=== PATIENT | male | born 1970 | race American Indian/Alaskan Native ===

== ENCOUNTER 2017-10-16 00:10 | Emergency (ER) | payer MEDICARE ==
[2017-10-16] MEDS ORDERED: ASPIRIN PO ONE (00:34)
[2017-10-16 01:16] LABS: Basophils % (Auto) 0.5 % (0.0-1.8); Eosinophils % (Auto) 0.3 % (0.0-4.3); Lymphocytes # (Auto) 1.1 K/mm3 (1.2-5.4); Lymphocytes % (Auto) 12.4 % (13.4-35.0); Mean Corpuscular HGB Conc 30 % (32-34); Mean Corpuscular Volume 82 fl (84-94); Monocytes # (Auto) 0.8 K/mm3 (0.0-0.8); Monocytes % (Auto) 8.6 % (0.0-7.3); Platelet Count 373 K/mm3 (140-440); Red Blood Count 4.69 M/mm3 (3.65-5.03); Red Cell Distribution Width 15.4 % (13.2-15.2)
[2017-10-16 01:33] LABS: Hematocrit 38.4 % (35.5-45.6); Hemoglobin 11.6 gm/dl (11.8-15.2); Mean Corpuscular Hemoglobin 25 pg (28-32)
[2017-10-16 01:40] LABS: Alanine Aminotransferase 13 units/L (7-56); Albumin 3.9 g/dL (3.9-5); BUN/Creatinine Ratio 16; Blood Urea Nitrogen 26 mg/dL (9-20); Calcium 9.1 mg/dL (8.4-10.2); Hemolysis Index 23
[2017-10-16] MEDS ORDERED: SUBLIMAZE IM ONE (10:54)
[2017-10-16] MEDS ORDERED: ZOFRAN IM ONE (10:54)
--- NOTE | 2017-10-16 11:01 | Emergency Department Report ---
HPI - General Chief Complaint: Chest Pain Time Seen by Provider: 10/16/17 10:48 - HPI HPI: Room 4 The patient is a 46-year-old male presenting with a chief complaint of abdominal pain and back pain. Patient states for the past 3 days she's had a constant pain in his right abdomen and lower back. Patient denies any other forms of pain. Patient denies dysuria or hematuria. Patient denies fever but admits to chills. The patient gives his pain a score of 9/10 Location: [See above] Duration: [See above] Quality: Pain Severity: 9/10 Modifying factors: [see above] Context: [see above] Mode of transportation: [not driving] ED Past Medical Hx - Past Medical History Hx Hypertension: Yes Hx Congestive Heart Failure: Yes Hx Deep Vein Thrombosis: Yes Hx Psychiatric Treatment: Yes (depression, anxiety, panic attacks) Additional medical history: crohn, osteomyelitis, diverticulitis, acid reflux - Surgical History Past Surgical History?: No Additional Surgical History: IVC filter, herniorrhaphy, ankle repair, perirectal abscess I&D 5 - Family History Family history: no significant - Social History Smoking Status: Current Every Day Smoker (1/2 pack per day) Substance Use Type: None (denies illicit drug use), Alcohol (occasional) - Medications Home Medications: Home Medications Medication Instructions Recorded Confirmed Last Taken Type traMADol [Ultram] 50 mg PO Q6HR PRN #10 tablet 10/16/17 Unknown Rx ED Review of Systems ROS: Stated complaint: CHEST PAIN Other details as noted in HPI Constitutional: chills. denies: fever Eyes: denies: eye pain ENT: denies: throat pain Cardiovascular: denies: chest pain Gastrointestinal: abdominal pain, nausea, vomiting, diarrhea Genitourinary: denies: dysuria, hematuria Musculoskeletal: back pain Neurological: denies: headache Physical Exam - Physical Exam Vital Signs: Vital Signs 10/16/17 00:26 Temperature 98.6 F Pulse Rate 80 Respiratory 20 Rate Blood Pressure 120/80 [Left] Physical Exam: GENERAL: The patient is well-developed well-nourished male lying on stretcher not appearing to be in acute distress. [] HEENT: Normocephalic. Atraumatic. Extraocular motions are intact. Patient has moist mucous membranes. NECK: Supple. Trachea midline CHEST/LUNGS: Clear to auscultation. There is no respiratory distress noted. HEART/CARDIOVASCULAR: Regular. There is no tachycardia. There is no gallop rub or murmur. ABDOMEN: Abdomen is soft, with tenderness to palpation in the right upper quadrant and right lower quadrant. Patient has normal bowel sounds. There is no abdominal distention. SKIN: There is no rash. There is no edema. There is no diaphoresis. NEURO: The patient is awake, alert, and oriented. The patient is cooperative. The patient has normal speech MUSCULOSKELETAL: There is mild right flank discomfort to palpation. There is no evidence of acute injury. ED Course Vital Signs 10/16/17 00:26 Temperature 98.6 F Pulse Rate 80 Respiratory 20 Rate Blood Pressure 120/80 [Left] ED Medical Decision Making - Lab Data Result diagrams: 10/16/17 00:49 10/16/17 00:49 Laboratory Tests 10/16/17 10/16/17 10/16/17 00:49 00:49 03:42 WBC 9.2 RBC 4.69 Hgb 11.6 L Hct 38.4 MCV 82 L MCH 25 L MCHC 30 L RDW 15.4 H Plt Count 373 Lymph % (Auto) 12.4 L [place] % (Auto) 8.6 H Eos % (Auto) 0.3 Baso % (Auto) 0.5 Lymph # 1.1 L [place] # 0.8 Eos # 0.0 Baso # 0.0 Seg Neutrophils % 78.2 H Seg Neutrophils # 7.2 Sodium 140 Potassium 3.5 L Chloride 101.2 Carbon Dioxide 18 L Anion Gap 24 BUN 26 H Creatinine 1.6 H Estimated GFR 57 BUN/Creatinine Ratio 16 Glucose 85 Calcium 9.1 Total Bilirubin < 0.20 AST 17 ALT 13 Alkaline Phosphatase 133 H Troponin T < 0.010 < 0.010 Total Protein 7.9 Albumin 3.9 Albumin/Globulin Ratio 1.0 Urine Color Urine Turbidity Urine pH Ur Specific [place] Urine Protein Urine Glucose (UA) Urine Ketones Urine Blood Urine Nitrite Urine Bilirubin Urine Urobilinogen Ur Leukocyte Esterase Urine WBC (Auto) Urine RBC (Auto) 10/16/17 10/16/17 11:10 12:06 WBC RBC Hgb Hct MCV MCH MCHC RDW Plt Count Lymph % (Auto) [place] % (Auto) Eos % (Auto) Baso % (Auto) Lymph # [place] # Eos # Baso # Seg Neutrophils % Seg Neutrophils # Sodium Potassium Chloride Carbon Dioxide Anion Gap BUN Creatinine Estimated GFR BUN/Creatinine Ratio Glucose Calcium Total Bilirubin AST ALT Alkaline Phosphatase Troponin T < 0.010 Total Protein Albumin Albumin/Globulin Ratio Urine Color Yellow Urine Turbidity Clear Urine pH 5.0 Ur Specific [place] 1.023 Urine Protein <15 mg/dl Urine Glucose (UA) Neg Urine Ketones Neg Urine Blood Neg Urine Nitrite Neg Urine Bilirubin Neg Urine Urobilinogen < 2.0 Ur Leukocyte Esterase Neg Urine WBC (Auto) < 1.0 Urine RBC (Auto) < 1.0 - EKG Data -: EKG Interpreted by Me EKG shows normal: sinus rhythm Rate: normal - EKG Data When compared to previous EKG there are: previous EKG unavailable Interpretation: other (no ischemic changes seen) - Radiology Data Radiology results: report reviewed (CT abdomen and pelvis), image reviewed (CT abdomen and pelvis) CT ABDOMEN PELVIS WITHOUT CONTRAST: HISTORY: Right sided abdominal pain, right back pain, Crohn's disease. COMPARISON: none. TECHNIQUE: Helical CT in 1.25mm intervals without IV contrast. Sagittal and coronal reconstructions. FINDINGS: Lung bases: Normal. Liver: Normal. Biliary system: Normal. Pancreas: Normal. Spleen: Normal. Kidneys/ureters/bladder: The kidneys are normal size, contour and position. The renal pyramids are slightly hyperintense suggesting nephrocalcinosis. A few punctate nonobstructing renal stones are suspected bilaterally. No ureteral stones or hydronephrosis is identified. The bladder and prostate gland are unremarkable.. Adrenal glands: Normal. Aorta: Normal. Intestines: The bowel loops are unremarkable given no oral contrast was administered. The terminal ileum is within normal limits. Appendix: Normal.An IVC filter is in place below the level of the renal veins. Pelvic viscera: Normal. Ascites: None. Adenopathy: None. Musculoskeletal: There is moderate degenerative disc disease at L3-4. A subtle superior endplate fracture at T12 is identified, age indeterminate. IMPRESSION: Punctate nonobstructing renal stones are identified. No hydronephrosis. The T12 superior endplate deformity of uncertain age. Please correlate with the patient. Transcribed By: TTR Dictated By: ANDREY NEWTON JR, MD Electronically Authenticated By: ANDREY NEWTON JR, MD Signed Date/Time: 10/16/17 1131 DD/ 1126 TD/TT: 10/16/17 1131 - Differential Diagnosis renal colic, appendicitis, cholelithiasis, gastroenteritis, Crohn's flare Critical care attestation.: If time is entered above; I have spent that time in minutes in the direct care of this critically ill patient, excluding procedure time. ED Disposition Clinical Impression: Acute abdominal pain Disposition: TO HOME OR SELFCARE Is pt being admited?: No Does the pt Need Aspirin: No Condition: Stable Instructions: Acute Abdominal Pain (ED) Additional Instructions: Return to the emergency department immediately should you develop worsening symptoms, fever, inability to tolerate food or liquid or any other concerns. 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
--- NOTE | 2017-10-16 11:37 | Cat Scan Report ---
CT ABDOMEN PELVIS WITHOUT CONTRAST: HISTORY: Right sided abdominal pain, right back pain, Crohn's disease. COMPARISON: none. TECHNIQUE: Helical CT in 1.25mm intervals without IV contrast. Sagittal and coronal reconstructions. FINDINGS: Lung bases: Normal. Liver: Normal. Biliary system: Normal. Pancreas: Normal. Spleen: Normal. Kidneys/ureters/bladder: The kidneys are normal size, contour and position. The renal pyramids are slightly hyperintense suggesting nephrocalcinosis. A few punctate nonobstructing renal stones are suspected bilaterally. No ureteral stones or hydronephrosis is identified. The bladder and prostate gland are unremarkable.. Adrenal glands: Normal. Aorta: Normal. Intestines: The bowel loops are unremarkable given no oral contrast was administered. The terminal ileum is within normal limits. Appendix: Normal.An IVC filter is in place below the level of the renal veins. Pelvic viscera: Normal. Ascites: None. Adenopathy: None. Musculoskeletal: There is moderate degenerative disc disease at L3-4. A subtle superior endplate fracture at T12 is identified, age indeterminate. IMPRESSION: Punctate nonobstructing renal stones are identified. No hydronephrosis. The T12 superior endplate deformity of uncertain age. Please correlate with the patient.
[2017-10-16 12:50] LABS: Bilirubin,Urine NEG (Negative); Blood,Urine NEG (Negative); Color,Urine Yellow (Yellow); Nitrite,Urine NEG (Negative); Protein,Urine <15 mg/dL mg/dL (Negative); RBC,Urine < 1.0 /HPF (0.0-6.0); Urobilinogen,Urine < 2.0 mg/dL (<2.0)
[2017-10-16 12:58] LABS: WBC,Urine < 1.0 /HPF (0.0-6.0)
[2017-10-16 13:26] VITALS: BP 140/84
== END 2017-10-16 16:16 | disposition home or self-care (01) ==
LOC: ED 00:10
DX: R10.9 Unspecified abdominal pain (principal); I11.0 Hypertensive heart disease with heart failure; Z86.718 Personal history of other venous thrombosis and embolism; F32.9 Major depressive disorder, single episode, unspecified; F41.0 Panic disorder [episodic paroxysmal anxiety]; K21.9 Gastro-esophageal reflux disease without esophagitis; K50.90 Crohn's disease, unspecified, without complications; F17.200 Nicotine dependence, unspecified, uncomplicated
CPT/HCPCS: 36415; 74176; 80048; 80053; 81001; 84484; 85025; 93005; 93010; 96372; 99284; J2405; J3010

== ENCOUNTER 2018-01-21 04:05 | Emergency (ER) | payer MEDICARE ==
[2018-01-21] MEDS ORDERED: MORPHINE IV ONE (04:53)
[2018-01-21] MEDS ORDERED: DECADRON IV ONE (04:53)
[2018-01-21] MEDS ORDERED: ZOFRAN IV ONE (04:53)
--- NOTE | 2018-01-21 04:57 | Emergency Department Report ---
ED Abdominal Pain HPI - General Chief Complaint: Abdominal Pain Stated Complaint: ABD PAIN Time Seen by Provider: 01/21/18 04:47 Source: patient Mode of arrival: Ambulatory Limitations: No Limitations - History of Present Illness MD Complaint: abdominal pain -: Gradual, days(s) (2) Location: diffuse Radiation: none Migration to: no migration Severity: moderate Quality: cramping Consistency: constant Context: other (history of Crohn's disease, history of C. difficile colitis, history of diverticulitis) Associated Symptoms: other (1-2 malodorous stools per day ) - Related Data Previous Rx's Medication Instructions Recorded Last Taken Type traMADol [Ultram] 50 mg PO Q6HR PRN #10 tablet 10/16/17 Unknown Rx HYDROcodone/APAP 5-325 [[place] 1 each PO Q4HR PRN #10 tablet 01/21/18 Unknown Rx 5/325] metroNIDAZOLE [Metronidazole] 500 mg PO BID 7 Days #14 tablet 01/21/18 Unknown Rx Allergies Allergy/AdvReac Type Severity Reaction Status Date / Time ceftriaxone Allergy Itching Verified 10/16/17 00:34 levofloxacin [From Levaquin] Allergy Itching Verified 10/16/17 00:34 shellfish derived Allergy Itching Verified 10/16/17 00:34 ED Review of Systems ROS: Stated complaint: ABD PAIN Other details as noted in HPI Comment: All other systems reviewed and negative Constitutional: fever, malaise Respiratory: denies: cough Cardiovascular: denies: chest pain ED Past Medical Hx - Past Medical History Hx Hypertension: Yes Hx Congestive Heart Failure: Yes Hx Deep Vein Thrombosis: Yes Hx Psychiatric Treatment: Yes (depression, anxiety, panic attacks) Additional medical history: crohn, osteomyelitis, diverticulitis, acid reflux - Surgical History Additional Surgical History: IVC filter, herniorrhaphy, ankle repair, perirectal abscess I&D 5 - Social History Smoking Status: Current Every Day Smoker Substance Use Type: None - Medications Home Medications: Home Medications Medication Instructions Recorded Confirmed Last Taken Type traMADol [Ultram] 50 mg PO Q6HR PRN #10 tablet 10/16/17 Unknown Rx HYDROcodone/APAP 5-325 [[place] 1 each PO Q4HR PRN #10 tablet 01/21/18 Unknown Rx 5/325] metroNIDAZOLE [Metronidazole] 500 mg PO BID 7 Days #14 tablet 01/21/18 Unknown Rx ED Physical Exam - General Limitations: No Limitations General appearance: alert, in no apparent distress - Head Head exam: Present: atraumatic, normocephalic - Eye Eye exam: Present: normal appearance - ENT ENT exam: Present: mucous membranes moist - Neck Neck exam: Present: normal inspection - Respiratory Respiratory exam: Present: normal lung sounds bilaterally. Absent: respiratory distress, wheezes, rales, rhonchi - Cardiovascular Cardiovascular Exam: Present: regular rate, normal rhythm, normal heart sounds. Absent: systolic murmur, diastolic murmur, rubs, gallop - GI/Abdominal GI/Abdominal exam: Present: soft, normal bowel sounds. Absent: distended, tenderness, guarding, rebound - Rectal Rectal exam: Present: deferred - Extremities Exam Extremities exam: Present: normal inspection - Neurological Exam Neurological exam: Present: alert, oriented X3 - Psychiatric Psychiatric exam: Present: normal affect, normal mood - Skin Skin exam: Present: warm, dry, intact, normal color. Absent: rash ED Course Vital Signs 01/21/18 04:12 Temperature 99 F Pulse Rate 96 H Respiratory 16 Rate Blood Pressure 120/84 O2 Sat by Pulse 100 Oximetry ED Medical Decision Making - Lab Data Result diagrams: 01/21/18 04:25 01/21/18 04:25 - Medical Decision Making Mr. Cates has a history of diverticulitis and Crohn's disease. He also has a history of C. difficile colitis. Followed by [employer] representative Dr. Mendez. He is taking Humira therapy. He held Humira injection on because he was feeling ill. Patient appears well. With the small amount of diarrhea I do not suspect C. difficile colitis. Patient does have elevated BUN with anion gap indicated of volume contraction. Will give IVF, rx: metronidazole and norco My colleague will f/u CT results. Critical care attestation.: If time is entered above; I have spent that time in minutes in the direct care of this critically ill patient, excluding procedure time. ED Disposition Clinical Impression: Crohn disease, Abdominal pain Disposition: DC-01 TO HOME OR SELFCARE Is pt being admited?: No Condition: Stable Instructions: Crohn Disease (ED) Prescriptions: HYDROcodone/APAP 5-325 [[place] 5/325] 1 each PO Q4HR PRN #10 tablet PRN Reason: Pain metroNIDAZOLE [Metronidazole] 500 mg PO BID 7 Days #14 tablet
[2018-01-21 05:18] LABS: Basophils # (Auto) 0.1 K/mm3 (0.0-0.1); Basophils % (Auto) 0.6 % (0.0-1.8); Eosinophils # (Auto) 0.1 K/mm3 (0.0-0.4); Eosinophils % (Auto) 0.6 % (0.0-4.3); Hemoglobin 11.8 gm/dl (11.8-15.2); Lymphocytes # (Auto) 1.1 K/mm3 (1.2-5.4); Lymphocytes % (Auto) 11.9 % (13.4-35.0); Mean Corpuscular HGB Conc 31 % (32-34); Mean Corpuscular Volume 83 fl (84-94); Monocytes # (Auto) 0.7 K/mm3 (0.0-0.8); Monocytes % (Auto) 7.1 % (0.0-7.3); Platelet Count 381 K/mm3 (140-440); Red Blood Count 4.59 M/mm3 (3.65-5.03); Red Cell Distribution Width 16.4 % (13.2-15.2)
[2018-01-21 05:21] LABS: Mean Corpuscular Hemoglobin 26 pg (28-32)
[2018-01-21 05:26] LABS: Alanine Aminotransferase 12 units/L (7-56); Albumin 4.7 g/dL (3.9-5); BUN/Creatinine Ratio 19; Blood Urea Nitrogen 26 mg/dL (9-20); Calcium 9.9 mg/dL (8.4-10.2); Hemolysis Index 2; Lipase 26 units/L (13-60)
[2018-01-21] MEDS ORDERED: NACL ONE (05:32)
[2018-01-21] MEDS ORDERED: NACL 0.9% 1000 ML 1,000 ML IV ONE (05:45)
[2018-01-21 07:31] VITALS: BP 111/77
--- NOTE | 2018-01-21 07:56 | Cat Scan Report ---
CT scan of abdomen and pelvis without IV contrast: Compared to 10/16/17. History: Crohn's disease. Findings: Normal lung bases. No pleural pericardial effusion. Normal liver spleen pancreas and gallbladder. Normal adrenals. There is circumscribed 3 mm density upper pole medial aspect left kidney. No hydronephrosis. Normal bladder. Prostatic calcification. Normal size prostate. No free intraperitoneal fluid or air. No evidence of adenopathy. Normal aorta. Mildly dilated appendix measuring 6 mm in diameter. No periappendiceal inflammation. Faecolith near the junction of the cecum and the appendix. Terminal ileum appears unremarkable. Stool in colon. No bowel distention. Impression: Nonobstructing calculus left kidney. No interval change. Additional findings as detailed above.
== END 2018-01-21 09:49 | disposition home or self-care (01) ==
LOC: ED 04:05
DX: K50.90 Crohn's disease, unspecified, without complications (principal); I11.0 Hypertensive heart disease with heart failure; F17.200 Nicotine dependence, unspecified, uncomplicated; F32.9 Major depressive disorder, single episode, unspecified; F41.0 Panic disorder [episodic paroxysmal anxiety]; Z86.718 Personal history of other venous thrombosis and embolism; Z88.1 Allergy status to other antibiotic agents; Z91.013 Allergy to seafood
CPT/HCPCS: 36415; 74176; 80053; 83690; 85025; 96361; 96374; 96375; 99284; J1100; J2270; J2405; J7030

== ENCOUNTER 2019-10-15 11:24 | Inpatient (IN) | payer MEDICARE ==
[2019-10-15] MEDS ORDERED: ONDANSETRON 4 MG/2 ML INJ IV ONE ×2 (11:46→15:43)
[2019-10-15] MEDS ORDERED: MORPHINE 4 MG/1 ML INJ IV ONE ×2 (11:46→15:43)
[2019-10-15] MEDS ORDERED: SODIUM CHLORIDE 0.9% 1000 ML 1,000 ML IV ONE (11:46)
--- NOTE | 2019-10-15 11:52 | Emergency Department Report ---
ED Abdominal Pain HPI - General Stated Complaint: ABD PAIN Time Seen by Provider: 10/15/19 11:42 Source: patient, EMS - History of Present Illness Initial Comments: Patient is 48 years old male with history of Crohn's disease, diverticulitis. Patient presented to the ER complaining of fever, chills and left lower quadrant abdominal pain for the last 2-3 days. Patient also complaining of nausea and vomiting and diarrhea also. Patient denied any chest pain or shortness of breath. No urinary symptoms. MD Complaint: abdominal pain -: days(s) (2) Location: LLQ Radiation: none Migration to: no migration Severity scale (0 -10): 7 Quality: sharp Consistency: constant - Related Data Previous Rx's Medication Instructions Recorded Last Taken Type traMADoL [Ultram] 50 mg PO Q6HR PRN #10 tablet 10/16/17 Unknown Rx HYDROcodone/APAP 5-325 [[place] 1 each PO Q4HR PRN #10 tablet 01/21/18 Unknown Rx 5/325] metroNIDAZOLE [Metronidazole] 500 mg PO BID 7 Days #14 tablet 01/21/18 Unknown Rx Allergies Allergy/AdvReac Type Severity Reaction Status Date / Time ceftriaxone Allergy Itching Verified 10/16/17 00:34 levofloxacin [From Levaquin] Allergy Itching Verified 10/16/17 00:34 shellfish derived Allergy Itching Verified 10/16/17 00:34 ED Review of Systems ROS: Stated complaint: ABD PAIN Other details as noted in HPI Comment: All other systems reviewed and negative Constitutional: chills, fever Respiratory: denies: cough, orthopnea, shortness of breath, SOB with exertion, SOB at rest, wheezing Cardiovascular: denies: chest pain Gastrointestinal: abdominal pain, nausea, vomiting, diarrhea. denies: constipation, hematemesis, melena, hematochezia Musculoskeletal: denies: back pain Neurological: denies: headache, weakness, numbness, paresthesias, confusion, abnormal gait ED Past Medical Hx - Past Medical History Hx Hypertension: Yes Hx Congestive Heart Failure: Yes Hx Deep Vein Thrombosis: Yes Hx Psychiatric Treatment: Yes (depression, anxiety, panic attacks) Additional medical history: crohn, osteomyelitis, diverticulitis, acid reflux - Surgical History Additional Surgical History: IVC filter, herniorrhaphy, ankle repair, perirectal abscess I&D 5 - Social History Smoking Status: Current Every Day Smoker Substance Use Type: None - Medications Home Medications: Home Medications Medication Instructions Recorded Confirmed Last Taken Type traMADoL [Ultram] 50 mg PO Q6HR PRN #10 tablet 10/16/17 Unknown Rx HYDROcodone/APAP 5-325 [[place] 1 each PO Q4HR PRN #10 tablet 01/21/18 Unknown Rx 5/325] metroNIDAZOLE [Metronidazole] 500 mg PO BID 7 Days #14 tablet 01/21/18 Unknown Rx ED Physical Exam - General General appearance: alert, in no apparent distress - Head Head exam: Present: atraumatic, normocephalic, normal inspection - Eye Eye exam: Present: normal appearance - ENT ENT exam: Present: mucous membranes dry - Neck Neck exam: Present: normal inspection. Absent: tenderness, meningismus - Respiratory Respiratory exam: Present: normal lung sounds bilaterally - Cardiovascular Cardiovascular Exam: Present: regular rate, normal rhythm, normal heart sounds - GI/Abdominal GI/Abdominal exam: Present: soft, normal bowel sounds. Absent: distended, tenderness, guarding, rebound, rigid, organomegaly, mass, bruit, pulsatile mass, hernia - Extremities Exam Extremities exam: Present: normal inspection, full ROM, normal capillary refill. Absent: tenderness, pedal edema, calf tenderness - Back Exam Back exam: Present: normal inspection, full ROM. Absent: CVA tenderness (R), CVA tenderness (L), muscle spasm, paraspinal tenderness, vertebral tenderness - Neurological Exam Neurological exam: Present: alert, oriented X3, CN II-XII intact, normal gait, reflexes normal - Psychiatric Psychiatric exam: Present: normal mood - Skin Skin exam: Present: warm, intact, normal color ED Course Vital Signs 10/15/19 11:50 Temperature 101.6 F H Pulse Rate 97 H Respiratory 12 Rate Blood Pressure 132/89 O2 Sat by Pulse 98 Oximetry ED Medical Decision Making - Lab Data Result diagrams: 10/15/19 12:58 10/15/19 12:58 - Radiology Data Radiology results: report reviewed - Medical Decision Making Patient is 48 years old male with history of Crohn's disease, diverticulitis. Patient presented to the ER complaining of fever, chills and left lower quadrant abdominal pain for the last 2-3 days. Patient also complaining of nausea and v omiting and diarrhea also. Patient denied any chest pain or shortness of breath. No urinary symptoms. Patient received normal saline, Zofran and morphine. CT abdomen and pelvis showed acute diverticulitis. Patient started on Flagyl. Discussed the patient with Dr. Tesfaye, he agreed to admit the patient to medical service for further management. Critical care attestation.: If time is entered above; I have spent that time in minutes in the direct care of this critically ill patient, excluding procedure time. ED Disposition Clinical Impression: Acute diverticulitis, Nausea and vomiting, Fever Disposition: DC-09 OP ADMIT IP TO THIS HOSP Is pt being admited?: Yes Condition: Stable
[2019-10-15 13:28] LABS: Alanine Aminotransferase 11 units/L (7-56); Albumin 3.4 g/dL (3.9-5); BUN/Creatinine Ratio 9; Blood Urea Nitrogen 14 mg/dL (9-20); Calcium 9.1 mg/dL (8.4-10.2); Hemolysis Index 0
[2019-10-15 13:32] LABS: Bilirubin,Direct < 0.2 mg/dL (0-0.2)
[2019-10-15] MEDS ORDERED: ACETAMINOPHEN 500 MG TAB PO ONE (13:35)
[2019-10-15 13:53] LABS: Hematocrit 25.9 % (35.5-45.6); Mean Corpuscular HGB Conc 31 % (32-34); Mean Corpuscular Volume 76 fl (84-94); Platelet Count 471 K/mm3 (140-440); Red Blood Count 3.43 M/mm3 (3.65-5.03); Red Cell Distribution Width 16.3 % (13.2-15.2)
--- NOTE | 2019-10-15 14:10 | XRay Report ---
CHEST 1 VIEW 10/15/2019 1:36 PM INDICATION / CLINICAL INFORMATION: fever. Nausea and vomiting x2 days. Fever. COMPARISON: None available. FINDINGS: SUPPORT DEVICES: None. HEART / MEDIASTINUM: Heart is normal size. Implantable cardiac loop recorder is present. LUNGS / PLEURA: No significant pulmonary or pleural abnormality. No pneumothorax. ADDITIONAL FINDINGS: No significant additional findings. IMPRESSION: 1. No acute findings. Signer Name: Jessica Hansen MD Signed: 10/15/2019 2:05 PM Workstation Name: [id number]
[2019-10-15] MEDS ORDERED: LORazepam 2 MG/ML VIAL IV ONE (14:16)
--- NOTE | 2019-10-15 15:26 | Cat Scan Report ---
CT of the abdomen and pelvis with contrast INDICATION: Abdominal pain and fever x2 days COMPARISON: 01/21/2018 FINDINGS: Lung bases are clear. Liver, spleen, pancreas, adrenal glands and kidneys are unremarkable and unchanged. 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 This appearance is old and unchanged. No definite gal lbladder or biliary tree abnormality. No fluid or adenopathy in the upper abdomen. Multiple abdominal wall collaterals are seen as well CT of the pelvis shows wall thickening and induration surrounding the proximal sigmoid colon likely d ue to focal colitis or diverticulitis. There is no extraluminal air or abscess. There is moderate carlee unt of proximal stool so there may be a low-grade obstruction at this level as well. No cul-de-sac fl uid with mild inguinal adenopathy unchanged. There are multiple venous collaterals in the pelvis as w ell. IMPRESSION: Moderate sigmoid colitis/diverticulitis. Automated exposure control was utilized to diminish radiation dose. Signer Name: Darryn Haskins MD Signed: 10/15/2019 3:22 PM Workstation Name: [id number]
[2019-10-15] MEDS ORDERED: metroNIDAZOLE/NS 500 MG/100 ML 500 MG/100 ML BAG IV ONE ×2 (15:45→17:42)
[2019-10-15 16:19] LABS: Basophils % (Manual) 0 % (0.0-1.8); Total Cells Counted 100
[2019-10-15 16:20] LABS: Anisocytosis 1+; Platelet Estimate Consistent w Auto; Target Cells Few
--- NOTE | 2019-10-15 21:05 | History and Physical Report ---
History of Present Illness Date of examination: 10/15/19 Date of admission: 10/15/19 16:00 Chief complaint: LLQ pain -2 days History of present illness: 48 years old male with history of Crohn's disease and diverticulitis presents to the ER complaining of fever, chills and left lower quadrant abdominal pain for the last 2-3 days. Patient also complaining of nausea and vomiting and diarrhea also. Patient denied any chest pain or shortness of breath. No urinary symptoms. MD Complaint: abdominal pain - 2 days Location: LLQ Radiation: none Migration to: no migration Severity scale (0 -10): 7 Quality: sharp Consistency: constant - Past Medical History Hypertension: Yes Congestive Heart Failure: Yes Deep Vein Thrombosis: Yes Psychiatric Treatment: Yes (depression, anxiety, panic attacks) Additional medical history: crohn, osteomyelitis, diverticulitis, acid reflux Surgical History Additional Surgical History: IVC filter, herniorrhaphy, ankle repair, perirectal abscess I&D 5 Social History Smoking Status: Current Every Day Smoker Substance Use Type: None Family History Htn Medications Home Medications: Home Medications Medication Instructions Recorded Confirmed Last Taken Type traMADoL [Ultram] 50 mg PO Q6HR PRN #10 tablet 10/16/17 Unknown Rx HYDROcodone/APAP 5-325 [[place] 1 each PO Q4HR PRN #10 tablet 01/21/18 Unknown Rx 5/325] metroNIDAZOLE [Metronidazole] 500 mg PO BID 7 Days #14 tablet 01/21/18 Unknown Rx Review of Systems ROS: Stated complaint: ABD PAIN Other details as noted in HPI Comment: All other systems reviewed and negative Constitutional: chills, fever Respiratory: denies: cough, orthopnea, shortness of breath, SOB with exertion, SOB at rest, wheezing Cardiovascular: denies: chest pain Gastrointestinal: abdominal pain, nausea, vomiting, diarrhea. denies: constipation, hematemesis, melena, hematochezia Musculoskeletal: denies: back pain Neurological: denies: headache, weakness, numbness, paresthesias, confusion, abnormal gait Medications and Allergies Allergies Allergy/AdvReac Type Severity Reaction Status Date / Time ceftriaxone Allergy Itching Verified 10/16/17 00:34 levofloxacin [From Levaquin] Allergy Itching Verified 10/16/17 00:34 shellfish derived Allergy Itching Verified 10/16/17 00:34 Home Medications Medication Instructions Recorded Confirmed Last Taken Type Unobtainable 10/15/19 10/15/19 Unknown History Active Meds: Active Medications Hydromorphone HCl (Dilaudid) 1 mg IV Q4H PRN PRN Reason: Pain , Severe (7-10) Exam - Constitutional Vitals: Temp Pulse Resp BP Pulse Ox 99.8 F H 103 H 23 135/79 99 10/15/19 20:22 10/15/19 20:22 10/15/19 20:22 10/15/19 17:45 10/15/19 20:22 Results - Labs CBC & Chem 7: 10/15/19 12:58 10/15/19 12:58 Labs: Laboratory Last Values WBC 7.0 K/mm3 (4.5-11.0) 10/15/19 12:58 RBC 3.43 M/mm3 (3.65-5.03) L 10/15/19 12:58 Hgb 8.0 gm/dl (11.8-15.2) L 10/15/19 12:58 Hct 25.9 % (35.5-45.6) L 10/15/19 12:58 MCV 76 fl (84-94) L 10/15/19 12:58 MCH 23 pg (28-32) L 10/15/19 12:58 MCHC 31 % (32-34) L 10/15/19 12:58 RDW 16.3 % (13.2-15.2) H 10/15/19 12:58 Plt Count 471 K/mm3 (140-440) H 10/15/19 12:58 [place] % (Auto) Mainstreaming Facilitator 10/15/19 12:58 Add Manual Diff Complete 10/15/19 12:58 Total Counted 100 10/15/19 12:58 Seg Neuts % (Manual) 83.0 % (40.0-70.0) H 10/15/19 12:58 Band Neutrophils % 0 % 10/15/19 12:58 Lymphocytes % (Manual) 3.0 % (13.4-35.0) L 10/15/19 12:58 Reactive Lymphs % (Man) 0 % 10/15/19 12:58 Monocytes % (Manual) 13.0 % (0.0-7.3) H 10/15/19 12:58 Eosinophils % (Manual) 1.0 % (0.0-4.3) 10/15/19 12:58 Basophils % (Manual) 0 % (0.0-1.8) 10/15/19 12:58 Metamyelocytes % 0 % 10/15/19 12:58 Myelocytes % 0 % 10/15/19 12:58 Promyelocytes % 0 % 10/15/19 12:58 Blast Cells % 0 % 10/15/19 12:58 Nucleated RBC % Not Reportable 10/15/19 12:58 Seg Neutrophils # Man 5.8 K/mm3 (1.8-7.7) 10/15/19 12:58 Band Neutrophils # 0.0 K/mm3 10/15/19 12:58 Lymphocytes # (Manual) 0.2 K/mm3 (1.2-5.4) L 10/15/19 12:58 Abs React Lymphs (Man) 0.0 K/mm3 10/15/19 12:58 Monocytes # (Manual) 0.9 K/mm3 (0.0-0.8) H 10/15/19 12:58 Eosinophils # (Manual) 0.1 K/mm3 (0.0-0.4) 10/15/19 12:58 Basophils # (Manual) 0.0 K/mm3 (0.0-0.1) 10/15/19 12:58 Metamyelocytes # 0.0 K/mm3 10/15/19 12:58 Myelocytes # 0.0 K/mm3 10/15/19 12:58 Promyelocytes # 0.0 K/mm3 10/15/19 12:58 Blast Cells # 0.0 K/mm3 10/15/19 12:58 WBC Morphology Not Reportable 10/15/19 12:58 Hypersegmented Neuts Not Reportable 10/15/19 12:58 Hyposegmented Neuts Not Reportable 10/15/19 12:58 Hypogranular Neuts Not Reportable 10/15/19 12:58 Smudge Cells Not Reportable 10/15/19 12:58 Toxic Granulation Not Reportable 10/15/19 12:58 Toxic Vacuolation Not Reportable 10/15/19 12:58 Dohle Bodies Not Reportable 10/15/19 12:58 Pelger-Huet Anomaly Not Reportable 10/15/19 12:58 Seng Rods Not Reportable 10/15/19 12:58 Platelet Estimate Consistent w auto 10/15/19 12:58 Clumped Platelets Not Reportable 10/15/19 12:58 Plt Clumps, EDTA Not Reportable 10/15/19 12:58 Large Platelets Not Reportable 10/15/19 12:58 Giant Platelets Not Reportable 10/15/19 12:58 Platelet Satelliting Not Reportable 10/15/19 12:58 Plt Morphology Comment Not Reportable 10/15/19 12:58 RBC Morphology Not Reportable 10/15/19 12:58 Dimorphic RBCs Not Reportable 10/15/19 12:58 Polychromasia Not Reportable 10/15/19 12:58 Hypochromasia Not Reportable 10/15/19 12:58 Poikilocytosis Not Reportable 10/15/19 12:58 Anisocytosis 1+ 10/15/19 12:58 Microcytosis Not Reportable 10/15/19 12:58 Macrocytosis Not Reportable 10/15/19 12:58 Spherocytes Not Reportable 10/15/19 12:58 Pappenheimer Bodies Not Reportable 10/15/19 12:58 Sickle Cells Not Reportable 10/15/19 12:58 Target Cells Few 10/15/19 12:58 Tear Drop Cells Not Reportable 10/15/19 12:58 Ovalocytes Not Reportable 10/15/19 12:58 Helmet Cells Not Reportable 10/15/19 12:58 [place] Bodies Not Reportable 10/15/19 12:58 [place] Rings Not Reportable 10/15/19 12:58 [place] Cells Not Reportable 10/15/19 12:58 Bite Cells Not Reportable 10/15/19 12:58 Crenated Cell Not Reportable 10/15/19 12:58 Elliptocytes Not Reportable 10/15/19 12:58 Acanthocytes (Spur) Not Reportable 10/15/19 12:58 Rouleaux Not Reportable 10/15/19 12:58 Hemoglobin C Crystals Not Reportable 10/15/19 12:58 Schistocytes Not Reportable 10/15/19 12:58 Malaria parasites Not Reportable 10/15/19 12:58 Jorge Alberto Bodies Not Reportable 10/15/19 12:58 Hem Pathologist Commnt No 10/15/19 12:58 Sodium 138 mmol/L (137-145) 10/15/19 12:58 Potassium 4.0 mmol/L (3.6-5.0) 10/15/19 12:58 Chloride 99.5 mmol/L (98-107) 10/15/19 12:58 Carbon Dioxide 24 mmol/L (22-30) 10/15/19 12:58 Anion Gap 19 mmol/L 10/15/19 12:58 BUN 14 mg/dL (9-20) 10/15/19 12:58 Creatinine 1.6 mg/dL (0.8-1.5) H 10/15/19 12:58 Estimated GFR 56 ml/min 10/15/19 12:58 BUN/Creatinine Ratio 9 % 10/15/19 12:58 Glucose 97 mg/dL (75-100) 10/15/19 12:58 Calcium 9.1 mg/dL (8.4-10.2) 10/15/19 12:58 Total Bilirubin 0.20 mg/dL (0.1-1.2) 10/15/19 12:58 Direct Bilirubin < 0.2 mg/dL (0-0.2) 10/15/19 12:58 Indirect Bilirubin 0.0 mg/dL 10/15/19 12:58 AST 25 units/L (5-40) 10/15/19 12:58 ALT 11 units/L (7-56) 10/15/19 12:58 Alkaline Phosphatase 89 units/L (35-129) 10/15/19 12:58 Total Protein 7.4 g/dL (6.3-8.2) 10/15/19 12:58 Albumin 3.4 g/dL (3.9-5) L 10/15/19 12:58 Albumin/Globulin Ratio 0.9 % 10/15/19 12:58 Lipase 24 units/L (13-60) 10/15/19 12:58 Short CBC 10/15/19 Range/Units 12:58 WBC 7.0 (4.5-11.0) K/mm3 Hgb 8.0 L (11.8-15.2) gm/dl Hct 25.9 L (35.5-45.6) % Plt Count 471 H (140-440) K/mm3 BMP 10/15/19 12:58 Sodium 138 Potassium 4.0 Chloride 99.5 Carbon Dioxide 24 BUN 14 Creatinine 1.6 H Glucose 97 Calcium 9.1 Liver Function 10/15/19 Range/Units 12:58 Total Bilirubin 0.20 (0.1-1.2) mg/dL Direct Bilirubin < 0.2 (0-0.2) mg/dL AST 25 (5-40) units/L ALT 11 (7-56) units/L Alkaline Phosphatase 89 (35-129) units/L Albumin 3.4 L (3.9-5) g/dL - Imaging and Cardiology CT scan - abdomen: report reviewed Assessment and Plan Advance Directives: Yes (Full code) VTE prophylaxis?: Chemical Plan of care discussed with patient/family: Yes - Patient Problems (1) Acute diverticulitis Current Visit: Yes Status: Acute Plan to address problem: Patient initiated on IV Zosyn and IV Flagyl Surprisingly he os not allergic to PCN but Ceftriaxone ID consult if necessary (2) AURORA (acute kidney injury) Current Visit: Yes Status: Acute Plan to address problem: IV fluids for now Possible VMN (3) Crohn's disease Current Visit: Yes Status: Chronic Qualifiers: Gastrointestinal tract location: unspecified location Plan to address problem: Inactive Will defer to GI (4) HTN (hypertension) Current Visit: Yes Status: Chronic Qualifiers: Hypertension type: essential hypertension Qualified Code(s): I10 - Essential (primary) hypertension Plan to address problem: Cont antihypertensives (5) CHF (congestive heart failure) Current Visit: Yes Status: Chronic Qualifiers: Heart failure type: combined systolic and diastolic Heart failure chronicity: chronic Qualified Code(s): I50.42 - Chronic combined systolic (congestive) and diastolic (congestive) heart failure Plan to address problem: By History (6) Anemia Current Visit: Yes Status: Chronic Qualifiers: Anemia type: unspecified type Qualified Code(s): D64.9 - Anemia, unspecified Plan to address problem: Anemia w/u (7) DVT prophylaxis Current Visit: Yes Status: Acute Plan to address problem: On Heparin and GI prophylaxis
[2019-10-15] MEDS ORDERED: METOCLOPRAMIDE 10 MG/2 ML INJ IV PRN (21:07)
[2019-10-15] MEDS: metroNIDAZOLE/NS 500 MG/100 ML 500 MG/100 ML BAG IV SCH (21:36)
[2019-10-15] MEDS: FAMOTIDINE 20 MG/2 ML INJ IV SCH (21:44)
[2019-10-15] MEDS: ONDANSETRON 4 MG/2 ML INJ IV PRN (21:44)
[2019-10-15] MEDS: HYDROmorphone 1 MG/1 ML INJ IV PRN (21:45)
[2019-10-15] MEDS: ACETAMINOPHEN 325 MG TAB PO PRN (21:45)
[2019-10-15] MEDS: PIPERACIL/TAZOBACTA 4.5/NS 100 4.5 GM/100 ML VIAL IV SCH (22:19)
[2019-10-16] MEDS: HYDROmorphone 1 MG/1 ML INJ IV PRN ×4 (02:05→19:46)
[2019-10-16] MEDS: ONDANSETRON 4 MG/2 ML INJ IV PRN ×4 (02:06→19:46)
[2019-10-16] MEDS: ACETAMINOPHEN 325 MG TAB PO PRN ×2 (06:26→22:47)
[2019-10-16] MEDS: PIPERACIL/TAZOBACTA 4.5/NS 100 4.5 GM/100 ML VIAL IV SCH ×3 (06:27→21:47)
[2019-10-16] MEDS: metroNIDAZOLE/NS 500 MG/100 ML 500 MG/100 ML BAG IV SCH ×2 (06:27→20:31)
--- NOTE | 2019-10-16 08:10 | Progress Note ---
Assessment and Plan Assessment and plan: 48-year-old man with history of Crohn's disease and diverticular disease who presents to the hospital with fevers chills and left lower quadrant pain x3 days. Associated with nausea vomiting and diarrhea. Past medical history includes hypertension, CHF, history of DVT status post IVC filter, depression anxiety panic attacks, Crohn's disease diverticulitis, acid reflux, osteomyelitis Acute diverticulitis/sepsis Antibiotics, IV fluids -Still having high fevers. Crohn's disease exacerbation? GI consult, empiric steroids Patient reports history of CHF Obtain echo dvt ppx- heparin sq History Interval history: Review of systems Constitutional: Still having high-grade fevers and malaise. No joint pains CVS: No chest pain, no orthopnea, no pedal edema GI: Reports having abdominal pain, nausea and diarrhea. Respiratory: , no wheezing, no coughing Hospitalist Physical - Physical exam Narrative exam: General.: Appears ill, cachectic HEENT: Moist mucous membranes, extraocular muscles intact, no lymphadenopathy Neck: supple Cardiac: S1-S2 heard Lungs: clear to auscultation bilaterally Abdomen: soft , tender, nondistended, bowel sounds positive Extremities: no edema clubbing or cyanosis Skin: no rash or lesions Neurologic: no gross focal deficits Psych: calm, and cooperative - Constitutional Vitals: Temp Pulse Resp BP Pulse Ox 103.0 F H 92 H 22 142/81 96 10/16/19 05:43 10/16/19 05:43 10/16/19 05:43 10/16/19 05:43 10/16/19 05:43 Results - Labs CBC & Chem 7: 10/17/19 09:01 10/17/19 09:01 Labs: Laboratory Last Values WBC 7.0 K/mm3 (4.5-11.0) 10/15/19 12:58 RBC 3.43 M/mm3 (3.65-5.03) L 10/15/19 12:58 Hgb 8.0 gm/dl (11.8-15.2) L 10/15/19 12:58 Hct 25.9 % (35.5-45.6) L 10/15/19 12:58 MCV 76 fl (84-94) L 10/15/19 12:58 MCH 23 pg (28-32) L 10/15/19 12:58 MCHC 31 % (32-34) L 10/15/19 12:58 RDW 16.3 % (13.2-15.2) H 10/15/19 12:58 Plt Count 471 K/mm3 (140-440) H 10/15/19 12:58 [place] % (Auto) Power And Recovery Supervisor 10/15/19 12:58 Add Manual Diff Complete 10/15/19 12:58 Total Counted 100 10/15/19 12:58 Seg Neuts % (Manual) 83.0 % (40.0-70.0) H 10/15/19 12:58 Band Neutrophils % 0 % 10/15/19 12:58 Lymphocytes % (Manual) 3.0 % (13.4-35.0) L 10/15/19 12:58 Reactive Lymphs % (Man) 0 % 10/15/19 12:58 Monocytes % (Manual) 13.0 % (0.0-7.3) H 10/15/19 12:58 Eosinophils % (Manual) 1.0 % (0.0-4.3) 10/15/19 12:58 Basophils % (Manual) 0 % (0.0-1.8) 10/15/19 12:58 Metamyelocytes % 0 % 10/15/19 12:58 Myelocytes % 0 % 10/15/19 12:58 Promyelocytes % 0 % 10/15/19 12:58 Blast Cells % 0 % 10/15/19 12:58 Nucleated RBC % Not Reportable 10/15/19 12:58 Seg Neutrophils # Man 5.8 K/mm3 (1.8-7.7) 10/15/19 12:58 Band Neutrophils # 0.0 K/mm3 10/15/19 12:58 Lymphocytes # (Manual) 0.2 K/mm3 (1.2-5.4) L 10/15/19 12:58 Abs React Lymphs (Man) 0.0 K/mm3 10/15/19 12:58 Monocytes # (Manual) 0.9 K/mm3 (0.0-0.8) H 10/15/19 12:58 Eosinophils # (Manual) 0.1 K/mm3 (0.0-0.4) 10/15/19 12:58 Basophils # (Manual) 0.0 K/mm3 (0.0-0.1) 10/15/19 12:58 Metamyelocytes # 0.0 K/mm3 10/15/19 12:58 Myelocytes # 0.0 K/mm3 10/15/19 12:58 Promyelocytes # 0.0 K/mm3 10/15/19 12:58 Blast Cells # 0.0 K/mm3 10/15/19 12:58 WBC Morphology Not Reportable 10/15/19 12:58 Hypersegmented Neuts Not Reportable 10/15/19 12:58 Hyposegmented Neuts Not Reportable 10/15/19 12:58 Hypogranular Neuts Not Reportable 10/15/19 12:58 Smudge Cells Not Reportable 10/15/19 12:58 Toxic Granulation Not Reportable 10/15/19 12:58 Toxic Vacuolation Not Reportable 10/15/19 12:58 Dohle Bodies Not Reportable 10/15/19 12:58 Pelger-Huet Anomaly Not Reportable 10/15/19 12:58 Seng Rods Not Reportable 10/15/19 12:58 Platelet Estimate Consistent w auto 10/15/19 12:58 Clumped Platelets Not Reportable 10/15/19 12:58 Plt Clumps, EDTA Not Reportable 10/15/19 12:58 Large Platelets Not Reportable 10/15/19 12:58 Giant Platelets Not Reportable 10/15/19 12:58 Platelet Satelliting Not Reportable 10/15/19 12:58 Plt Morphology Comment Not Reportable 10/15/19 12:58 RBC Morphology Not Reportable 10/15/19 12:58 Dimorphic RBCs Not Reportable 10/15/19 12:58 Polychromasia Not Reportable 10/15/19 12:58 Hypochromasia Not Reportable 10/15/19 12:58 Poikilocytosis Not Reportable 10/15/19 12:58 Anisocytosis 1+ 10/15/19 12:58 Microcytosis Not Reportable 10/15/19 12:58 Macrocytosis Not Reportable 10/15/19 12:58 Spherocytes Not Reportable 10/15/19 12:58 Pappenheimer Bodies Not Reportable 10/15/19 12:58 Sickle Cells Not Reportable 10/15/19 12:58 Target Cells Few 10/15/19 12:58 Tear Drop Cells Not Reportable 10/15/19 12:58 Ovalocytes Not Reportable 10/15/19 12:58 Helmet Cells Not Reportable 10/15/19 12:58 [place] Bodies Not Reportable 10/15/19 12:58 [place] Rings Not Reportable 10/15/19 12:58 [place] Cells Not Reportable 10/15/19 12:58 Bite Cells Not Reportable 10/15/19 12:58 Crenated Cell Not Reportable 10/15/19 12:58 Elliptocytes Not Reportable 10/15/19 12:58 Acanthocytes (Spur) Not Reportable 10/15/19 12:58 Rouleaux Not Reportable 10/15/19 12:58 Hemoglobin C Crystals Not Reportable 10/15/19 12:58 Schistocytes Not Reportable 10/15/19 12:58 Malaria parasites Not Reportable 10/15/19 12:58 Jorge Alberto Bodies Not Reportable 10/15/19 12:58 Hem Pathologist Commnt No 10/15/19 12:58 Sodium 138 mmol/L (137-145) 10/15/19 12:58 Potassium 4.0 mmol/L (3.6-5.0) 10/15/19 12:58 Chloride 99.5 mmol/L (98-107) 10/15/19 12:58 Carbon Dioxide 24 mmol/L (22-30) 10/15/19 12:58 Anion Gap 19 mmol/L 10/15/19 12:58 BUN 14 mg/dL (9-20) 10/15/19 12:58 Creatinine 1.6 mg/dL (0.8-1.5) H 10/15/19 12:58 Estimated GFR 56 ml/min 10/15/19 12:58 BUN/Creatinine Ratio 9 % 10/15/19 12:58 Glucose 97 mg/dL (75-100) 10/15/19 12:58 Calcium 9.1 mg/dL (8.4-10.2) 10/15/19 12:58 Total Bilirubin 0.20 mg/dL (0.1-1.2) 10/15/19 12:58 Direct Bilirubin < 0.2 mg/dL (0-0.2) 10/15/19 12:58 Indirect Bilirubin 0.0 mg/dL 10/15/19 12:58 AST 25 units/L (5-40) 10/15/19 12:58 ALT 11 units/L (7-56) 10/15/19 12:58 Alkaline Phosphatase 89 units/L (35-129) 10/15/19 12:58 Total Protein 7.4 g/dL (6.3-8.2) 10/15/19 12:58 Albumin 3.4 g/dL (3.9-5) L 10/15/19 12:58 Albumin/Globulin Ratio 0.9 % 10/15/19 12:58 Lipase 24 units/L (13-60) 10/15/19 12:58 Active Medications - Current Medications Current Medications: Generic Name Dose Route Start Last Admin Trade Name Freq PRN Reason Stop Dose Admin Acetaminophen 650 mg 10/15/19 21:07 10/16/19 06:26 Tylenol PO 650 mg Q4H PRN Administration Pain MILD(1-3)/Fever >100.5/BEAULIEU Famotidine 20 mg 10/15/19 22:00 10/15/19 21:44 Pepcid IV 20 mg BID ZACHERY Administration Heparin Sodium (Porcine) 5,000 unit 10/16/19 10:00 Heparin SUB-Q Q12HR ZACHERY Hydromorphone HCl 1 mg 10/15/19 19:47 10/16/19 07:40 Dilaudid IV 1 mg Q4H PRN Administration Pain , Severe (7-10) Piperacillin Sod/Tazobactam Sod 4.5 gm in 100 mls @ 200 mls/hr 10/15/19 22:00 10/16/19 06:27 Zosyn/Ns 4.5gm/100ml IV 200 mls/hr Q8HR ZACHERY Administration Protocol Metronidazole 500 mg in 100 mls @ 100 mls/hr 10/15/19 22:00 10/16/19 06:27 Flagyl 500 Mg/100 Ml IV 100 mls/hr Q8HR ZACHERY Administration Protocol Metoclopramide HCl 10 mg 10/15/19 21:07 Reglan IV Q6H PRN Nausea And Vomiting Ondansetron HCl 4 mg 10/15/19 21:07 10/16/19 02:06 Zofran IV 4 mg Q3H PRN Administration Nausea And Vomiting Sodium Chloride 10 ml 10/15/19 22:00 10/15/19 21:45 Sodium Chloride Flush Syringe 10 Ml IV 10 ml BID ZACHERY Administration Sodium Chloride 10 ml 10/15/19 21:07 Sodium Chloride Flush Syringe 10 Ml IV PRN PRN LINE FLUSH
[2019-10-16 08:20] LABS: % Iron Saturation 4.32 %
[2019-10-16] MEDS: FAMOTIDINE 20 MG/2 ML INJ IV SCH ×2 (09:55→21:48)
[2019-10-16] MEDS: methylPREDNISolone Sod Suc 500 MG in SODIUM CHLORIDE 0.9% 100 ML IV SCH (09:58)
[2019-10-16] MEDS: HEPARIN 5,000 UNIT/1 ML VIAL SUB-Q SCH ×2 (10:03→21:48)
--- NOTE | 2019-10-16 14:19 | Gastroenterology Consultation ---
<ELIZABETH OLIVAS - Last Filed: 10/16/19 14:20> History of Present Illness - Reason for Consult Consult date: 10/16/19 Crohn's, diverticulitis Requesting physician: DANNY SNELL - History of Present Illness Patient is a 48 y/o male with PMH of Crohn's disease (dx in 1997; hx of multiple perirectal abscesses with I&D), DVT (s/p IVC filter), depression/anxiety, CHF, HTN, osteomyelitis, GERD, and recurrent diverticulitis who presented to ED with c/o left lower abdominal pain with associated fever, N/V, and diarrhea. Upon admission, abd CT showed colitis vs diverticulitis in proximal sigmoid (no abscess or perforation; possible partial obstruction) to which GI has been consulted. This afternoon patient was resting in bed w/o acute distress. Reports continued LLQ pain and diarrhea with BMs x 10-12 per day (baseline 3-4/day). No blood in stool. He is followed by Dr. Herbert at [facility] for Crohn's disease to which he is currently being treated with Humira. Reports a hx of C-diff infection early last year and multiple recurrent episodes of diverticulitis in the past with last episode in July 2019 per patient with recommendations given for a colostomy at [facility] due to "narrowing" of his colon seen on f/u colonoscopy (records currently unavailable). States that at home he can tolerate liquid/soft foods but if he eats foods, like a pork chop, it makes his abd pain worse and his abdomen becomes distended likely "food will not pass". No recent abx therapy, travel, or known ill contacts. Has had significant wt loss due to above symptoms over the past year but states his wt has been relatively stable over the last 3 months. Denies CP, SOB, signs of bleeding, or constipation. Past History Past Medical History: other (see HPI) Past Surgical History: hernia repair, Other (IVC filter, ankle repair, perirectal abscess I&D 5) Social history: smoking. denies: alcohol abuse Family history: hypertension Medications and Allergies Allergies Allergy/AdvReac Type Severity Reaction Status Date / Time ceftriaxone Allergy Itching Verified 10/16/17 00:34 levofloxacin [From Levaquin] Allergy Itching Verified 10/16/17 00:34 shellfish derived Allergy Itching Verified 10/16/17 00:34 Home Medications Medication Instructions Recorded Confirmed Last Taken Type Adalimumab [Humira] 10/16/19 2 Months Ago History ~08/16/19 Mesalamine 10/16/19 1 Month Ago History ~09/15/19 oxyCODONE /ACETAMINOPHEN [Percocet 10/16/19 2 Months Ago History 5/325 mg] ~08/16/19 Active Meds: Active Medications Acetaminophen (Tylenol) 650 mg PO Q4H PRN PRN Reason: Pain MILD(1-3)/Fever >100.5/BEAULIEU Last Admin: 10/16/19 06:26 Dose: 650 mg Documented by: Famotidine (Pepcid) 20 mg IV BID [facility] Last Admin: 10/16/19 09:55 Dose: 20 mg Documented by: Heparin Sodium (Porcine) (Heparin) 5,000 unit SUB-Q Q12HR [facility] Last Admin: 10/16/19 10:03 Dose: 5,000 unit Documented by: Hydromorphone HCl (Dilaudid) 1 mg IV Q4H PRN PRN Reason: Pain , Severe (7-10) Last Admin: 10/16/19 07:40 Dose: 1 mg Documented by: Piperacillin Sod/Tazobactam Sod (Zosyn/Ns 4.5gm/100ml) 4.5 gm in 100 mls @ 200 mls/hr IV Q8HR [facility]; Protocol Last Admin: 10/16/19 06:27 Dose: 200 mls/hr Documented by: Metronidazole (Flagyl 500 Mg/100 Ml) 500 mg in 100 mls @ 100 mls/hr IV Q8HR [facility]; Protocol Last Admin: 10/16/19 06:27 Dose: 100 mls/hr Documented by: Methylprednisolone Sodium Succinate 500 mg/ Sodium Chloride 100 mls @ 200 mls/hr IV Q24HR [facility] Last Admin: 10/16/19 09:58 Dose: 200 mls/hr Documented by: Metoclopramide HCl (Reglan) 10 mg IV Q6H PRN PRN Reason: Nausea And Vomiting Ondansetron HCl (Zofran) 4 mg IV Q3H PRN PRN Reason: Nausea And Vomiting Last Admin: 10/16/19 09:53 Dose: 4 mg Documented by: Sodium Chloride (Sodium Chloride Flush Syringe 10 Ml) 10 ml IV BID [facility] Last Admin: 10/15/19 21:45 Dose: 10 ml Documented by: Sodium Chloride (Sodium Chloride Flush Syringe 10 Ml) 10 ml IV PRN PRN PRN Reason: LINE FLUSH medications reviewed/updated as required Review of Systems - Review of Systems All systems: negative Gastrointestinal: abdominal pain (LLQ), nausea, vomiting, diarrhea Exam - Constitutional Vital Signs: Temp Pulse Resp BP Pulse Ox 103.0 F H 92 H 22 142/81 96 10/16/19 05:43 10/16/19 05:43 10/16/19 05:43 10/16/19 05:43 10/16/19 05:43 General appearance: no acute distress, other (thin, chronically ill appearing) - EENT Eyes: PERRL, EOM intact ENT: hearing intact - Respiratory Respiratory effort: normal Respiratory: bilateral: CTA - Cardiovascular Rhythm: regular - Gastrointestinal General gastrointestinal: Present: soft, tender (LLQ), non-distended, normal bowel sounds - Integumentary Integumentary: Present: warm, dry - Neurologic Neurological: alert and oriented x3 - Labs CBC & Chem 7: 10/15/19 12:58 10/15/19 12:58 Lab Results: Laboratory Results - last 24 hr 10/15/19 10/16/19 10/16/19 12:58 07:16 07:16 Add Manual Diff Complete Total Counted 100 Seg Neuts % (Manual) 83.0 H Band Neutrophils % 0 Lymphocytes % (Manual) 3.0 L Reactive Lymphs % (Man) 0 Monocytes % (Manual) 13.0 H Eosinophils % (Manual) 1.0 Basophils % (Manual) 0 Metamyelocytes % 0 Myelocytes % 0 Promyelocytes % 0 Blast Cells % 0 Nucleated RBC % Not Reportable Seg Neutrophils # Man 5.8 Band Neutrophils # 0.0 Lymphocytes # (Manual) 0.2 L Abs React Lymphs (Man) 0.0 Monocytes # (Manual) 0.9 H Eosinophils # (Manual) 0.1 Basophils # (Manual) 0.0 Metamyelocytes # 0.0 Myelocytes # 0.0 Promyelocytes # 0.0 Blast Cells # 0.0 WBC Morphology Not Reportable Hypersegmented Neuts Not Reportable Hyposegmented Neuts Not Reportable Hypogranular Neuts Not Reportable Smudge Cells Not Reportable Toxic Granulation Not Reportable Toxic Vacuolation Not Reportable Dohle Bodies Not Reportable Pelger-Huet Anomaly Not Reportable Seng Rods Not Reportable Platelet Estimate Consistent w auto Clumped Platelets Not Reportable Plt Clumps, EDTA Not Reportable Large Platelets Not Reportable Giant Platelets Not Reportable Platelet Satelliting Not Reportable Plt Morphology Comment Not Reportable RBC Morphology Not Reportable Dimorphic RBCs Not Reportable Polychromasia Not Reportable Hypochromasia Not Reportable Poikilocytosis Not Reportable Anisocytosis 1+ Microcytosis Not Reportable Macrocytosis Not Reportable Spherocytes Not Reportable Pappenheimer Bodies Not Reportable Sickle Cells Not Reportable Target Cells Few Tear Drop Cells Not Reportable Ovalocytes Not Reportable Helmet Cells Not Reportable [place] Bodies Not Reportable [place] Rings Not Reportable Kwadwo Cells Not Reportable Bite Cells Not Reportable Crenated Cell Not Reportable Elliptocytes Not Reportable Acanthocytes (Spur) Not Reportable Rouleaux Not Reportable Hemoglobin C Crystals Not Reportable Schistocytes Not Reportable Malaria parasites Not Reportable Jorge Alberto Bodies Not Reportable Hem Pathologist Commnt No Iron 12 L TIBC 278 % Saturation 4.32 Transferrin 246 Vitamin B12 562.2 Assessment and Plan 1.abdominal pain 2.N/V 3.diarrhea 4.abnormal CT (colitis vs diverticulitis) 5.sepsis 6.H/o Crohn's disease 7.H/o C-diff 8.H/o recurrent diverticulitis -temp 103 -WBC WNL -H/H 8.0/25.9-no active signs of bleeding -LFTs and lipase WNL -abd CT showed proximal sigmoid colitis vs diverticulitis with possible low- grade obstruction -etiology-patient with hx of Crohn's (dx in 1997; hx of multiple perirectal abscesses with I&D; currently on Humira; followed by Dr. Herbert at [facility]) with C- diff infection last year per pt and multiple episodes of recurrent diverticulitis (last episode in July 2019 per patient with recommendations given for a colostomy at [facility] due to "narrowing", along with inflammation of his colon seen on f/u colonoscopy; records unavailable) -request records from [facility] -stool studies including C-diff to r/o infection -no plan for scope or recommendations for steroids at this time -okay for clears as tolerated -continue antibiotics -consider surgery consult -ID consult pending -continue supportive care -further recommendations to follow <SHANON RIVERA - Last Filed: 10/16/19 18:32> Medications and Allergies Active Meds: Active Medications Acetaminophen (Tylenol) 650 mg PO Q4H PRN PRN Reason: Pain MILD(1-3)/Fever >100.5/BEAULIEU Last Admin: 10/16/19 06:26 Dose: 650 mg Documented by: Famotidine (Pepcid) 20 mg IV BID [facility] Last Admin: 10/16/19 09:55 Dose: 20 mg Documented by: Heparin Sodium (Porcine) (Heparin) 5,000 unit SUB-Q Q12HR [facility] Last Admin: 10/16/19 10:03 Dose: 5,000 unit Documented by: Hydromorphone HCl (Dilaudid) 1 mg IV Q4H PRN PRN Reason: Pain , Severe (7-10) Last Admin: 10/16/19 15:07 Dose: 1 mg Documented by: Piperacillin Sod/Tazobactam Sod (Zosyn/Ns 4.5gm/100ml) 4.5 gm in 100 mls @ 200 mls/hr IV Q8HR [facility]; Protocol Last Admin: 10/16/19 15:29 Dose: 200 mls/hr Documented by: Methylprednisolone Sodium Succinate 500 mg/ Sodium Chloride 100 mls @ 200 mls/hr IV Q24HR [facility] Last Admin: 10/16/19 09:58 Dose: 200 mls/hr Documented by: Metoclopramide HCl (Reglan) 10 mg IV Q6H PRN PRN Reason: Nausea And Vomiting Ondansetron HCl (Zofran) 4 mg IV Q3H PRN PRN Reason: Nausea And Vomiting Last Admin: 10/16/19 15:08 Dose: 4 mg Documented by: Sodium Chloride (Sodium Chloride Flush Syringe 10 Ml) 10 ml IV BID [facility] Last Admin: 10/16/19 15:38 Dose: 10 ml Documented by: Sodium Chloride (Sodium Chloride Flush Syringe 10 Ml) 10 ml IV PRN PRN PRN Reason: LINE FLUSH Exam - Constitutional Vital Signs: Temp Pulse Resp BP Pulse Ox 103.0 F H 92 H 22 142/81 96 10/16/19 05:43 10/16/19 05:43 10/16/19 05:43 10/16/19 05:43 10/16/19 05:43 - Labs CBC & Chem 7: 10/15/19 12:58 10/15/19 12:58 Lab Results: Laboratory Results - last 24 hr 10/16/19 10/16/19 07:16 07:16 Iron 12 L TIBC 278 % Saturation 4.32 Transferrin 246 Vitamin B12 562.2 Assessment and Plan Patient seen and examined. I have reviewed the advanced practitioner's evaluation, assessment, and plan, and agree with them. I note the following additions: Given patient's complicated presentation and history, recommend continue antibiotics and ensure no underlying C. difficile infection and avoid steroids for now Goal be to improve patient's global status but he will need to return to his regular pressurizer at [facility] for consideration of surgical intervention - Patient Problems (1) Acute diverticulitis Current Visit: Yes Status: Acute (2) Crohn's disease Current Visit: Yes Status: Chronic Qualifiers: Gastrointestinal tract location: unspecified location
--- NOTE | 2019-10-16 14:24 | Consultation ---
History of Present Illness - Reason for Consult Consult date: 10/16/19 - History of Present Illness 40-year-old male with a past medical history of Crohn's disease and diverticulitis presents to the ER with a 3 day history of fevers, chills, and abdominal pain. he also noted associated nausea and vomiting. he has had similar episodes in the past, and was diagnosed with diverticulitis at the time. Currently, he feels improved since admission with decreased abdominal pain. regarding his Crohn's is not currently on any medications. He notes being treated in the past with amoxicillin. febrile to 103 with white count of 7. Currently receiving Zosyn and Flagyl. 10/15/2019 blood cultures are pending. Imaging personally reviewed: CT abdomen and pelvis: Diverticulitis Chest x-ray: No abnormality Review of Systems: Bold if positive, otherwise negative General: fevers, chills, rigors HEENT: visual disturbance, diplopia, eye pain Respiratory: cough, sputum, hemoptysis, shortness of breath Cardiovascular: chest pain, syncope Gastrointestinal: nausea, vomiting, diarrhea, abdominal pain Genitourinary: dysuria, hematuria, flank pain Musculoskeletal: neck pain, back pain, joint pain, edema Neurologic: headaches, seizures Hematologic: easy bruising or bleeding Endocrine: night sweats, acute weight loss Skin: rash, jaundice, redness Psychiatric: suicidal, homicidal ideation Medications and Allergies Allergies Allergy/AdvReac Type Severity Reaction Status Date / Time ceftriaxone Allergy Itching Verified 10/16/17 00:34 levofloxacin [From Levaquin] Allergy Itching Verified 10/16/17 00:34 shellfish derived Allergy Itching Verified 10/16/17 00:34 Home Medications Medication Instructions Recorded Confirmed Last Taken Type Adalimumab [Humira] 10/16/19 2 Months Ago History ~08/16/19 Mesalamine 10/16/19 1 Month Ago History ~09/15/19 oxyCODONE /ACETAMINOPHEN [Percocet 10/16/19 2 Months Ago History 5/325 mg] ~08/16/19 Active Meds: Active Medications Acetaminophen (Tylenol) 650 mg PO Q4H PRN PRN Reason: Pain MILD(1-3)/Fever >100.5/BEAULIEU Last Admin: 10/16/19 06:26 Dose: 650 mg Documented by: Famotidine (Pepcid) 20 mg IV BID [facility] Last Admin: 10/16/19 09:55 Dose: 20 mg Documented by: Heparin Sodium (Porcine) (Heparin) 5,000 unit SUB-Q Q12HR [facility] Last Admin: 10/16/19 10:03 Dose: 5,000 unit Documented by: Hydromorphone HCl (Dilaudid) 1 mg IV Q4H PRN PRN Reason: Pain , Severe (7-10) Last Admin: 10/16/19 07:40 Dose: 1 mg Documented by: Piperacillin Sod/Tazobactam Sod (Zosyn/Ns 4.5gm/100ml) 4.5 gm in 100 mls @ 200 mls/hr IV Q8HR [facility]; Protocol Last Admin: 10/16/19 06:27 Dose: 200 mls/hr Documented by: Metronidazole (Flagyl 500 Mg/100 Ml) 500 mg in 100 mls @ 100 mls/hr IV Q8HR [facility]; Protocol Last Admin: 10/16/19 06:27 Dose: 100 mls/hr Documented by: Methylprednisolone Sodium Succinate 500 mg/ Sodium Chloride 100 mls @ 200 mls/hr IV Q24HR [facility] Last Admin: 10/16/19 09:58 Dose: 200 mls/hr Documented by: Metoclopramide HCl (Reglan) 10 mg IV Q6H PRN PRN Reason: Nausea And Vomiting Ondansetron HCl (Zofran) 4 mg IV Q3H PRN PRN Reason: Nausea And Vomiting Last Admin: 10/16/19 09:53 Dose: 4 mg Documented by: Sodium Chloride (Sodium Chloride Flush Syringe 10 Ml) 10 ml IV BID [facility] Last Admin: 10/15/19 21:45 Dose: 10 ml Documented by: Sodium Chloride (Sodium Chloride Flush Syringe 10 Ml) 10 ml IV PRN PRN PRN Reason: LINE FLUSH Physical Examination - Physical Exam Narrative exam: Constitutional: Alert, cooperative. No acute distress Head, Ears, Nose: Normocephalic, atraumatic. External ears, nose normal Eyes: Conjunctivae/corneas clear. No icterus. No ptosis. Neck: Supple, no meningeal signs Oral: dentition fair, no thrush Cardiovascular: S1, S2 normal. Respiratory: Good air entry, clear to auscultation bilaterally GI: Soft, +tender; bowel sounds normal. No peritoneal signs. Musculoskeletal: No pedal edema, no cyanosis. Skin: No rash or abscess Hem/Lymphatic: No palpable cervical or supraclavicular nodes. No lymphangitis Psych: Mood ok. Affect normal Neurological: Awake, alert, oriented. No gross abnormality - Constitutional Vitals: Vital Signs Temp Pulse Resp BP Pulse Ox 103.0 F H 92 H 22 142/81 96 10/16/19 05:43 10/16/19 05:43 10/16/19 05:43 10/16/19 05:43 10/16/19 05:43 Temperature -Last 24 Hours Temperature 103.0 F Temperature 103.0 F Temperature 99.8 F Temperature 99.8 F Results - Labs CBC & Chem 7: 10/15/19 12:58 10/15/19 12:58 Labs: Abnormal lab results 10/15/19 10/16/19 Range/Units 12:58 07:16 Seg Neuts % (Manual) 83.0 H (40.0-70.0) % Lymphocytes % (Manual) 3.0 L (13.4-35.0) % Monocytes % (Manual) 13.0 H (0.0-7.3) % Lymphocytes # (Manual) 0.2 L (1.2-5.4) K/mm3 Monocytes # (Manual) 0.9 H (0.0-0.8) K/mm3 Iron 12 L (49-181) ug/dL Assessment and Plan Cultures: 10/15/2019 blood cultures: Pending A&P - 40-year-old male with a past medical history of Crohn's disease and diverticulitis admitted with recurrent diverticulitis #diverticulitis - recommend continuing treatment with Zosyn for now, can stop Flagyl due to overlapping spectra with Zosyn. #Crohn's: Per GI, not on current treatment. #cephalosporin and fluoroquinolone allergies: Currently tolerating Zosyn. reports hives and shortness of breath associated with quinolones Recommendations: -continue Zosyn -Stop Flagyl - follow up for symptomatic improvement - Likely to D/C on Augmentin. Thank you for the consult, will follow. MD Rosaura Dumont [facility] ([facility]) M: [phone] O: [phone] F: [phone]
[2019-10-17] MEDS: HYDROmorphone 1 MG/1 ML INJ IV PRN ×6 (00:06→20:14)
[2019-10-17] MEDS: ONDANSETRON 4 MG/2 ML INJ IV PRN ×6 (00:07→20:14)
[2019-10-17] MEDS: PIPERACIL/TAZOBACTA 4.5/NS 100 4.5 GM/100 ML VIAL IV SCH ×2 (05:31→15:52)
[2019-10-17 09:41] LABS: Hematocrit 30.6 % (35.5-45.6); Hemoglobin 9.4 gm/dl (11.8-15.2); Mean Corpuscular HGB Conc 31 % (32-34); Mean Corpuscular Volume 76 fl (84-94); Platelet Count 469 K/mm3 (140-440); Red Cell Distribution Width 16.3 % (13.2-15.2)
[2019-10-17 09:59] LABS: BUN/Creatinine Ratio 10; Blood Urea Nitrogen 14 mg/dL (9-20); Hemolysis Index 18
[2019-10-17] MEDS: ACETAMINOPHEN 325 MG TAB PO PRN (10:42)
[2019-10-17] MEDS: FAMOTIDINE 20 MG/2 ML INJ IV SCH (10:44)
[2019-10-17] MEDS: HEPARIN 5,000 UNIT/1 ML VIAL SUB-Q SCH (10:56)
--- NOTE | 2019-10-17 13:17 | Gastroenterology Progress Note ---
<ELIZABETH OLIVAS - Last Filed: 10/17/19 13:17> Assessment and Plan 1.abdominal pain 2.N/V 3.diarrhea 4.abnormal CT (colitis vs diverticulitis) 5.sepsis 6.H/o Crohn's disease 7.H/o C-diff 8.H/o recurrent diverticulitis -afebrile with fever resolved -WBC WNL -H/H 9.4/30.6-trending up-no active signs of bleeding -LFTs and lipase WNL -stool negative for WBCs -culture and C-diff pending -abd CT showed proximal sigmoid colitis vs diverticulitis with possible low- grade obstruction -etiology-patient with hx of Crohn's (dx in 1997; hx of multiple perirectal abscesses with I&D; currently on Humira; followed by Dr. Herbert at [place]) with C- diff infection last year per pt and multiple episodes of recurrent diverticulitis (last episode in July 2019 per patient with recommendations given for a colostomy at [facility] due to "narrowing", along with inflammation of his colon seen on f/u colonoscopy; records unavailable) -clinically, patient is stable with diarrhea improving. +LLQ pain that is chronic and unchanged. No vomiting or signs of bleeding. -no plan for scope or recommendations for steroids at this time -advance diet as tolerated to GI soft -continue antibiotics per ID recommendations -continue supportive care -patient to f/u with primary GI at [facility] upon discharge for further management/consideration of surgical intervention Subjective Date of service: 10/17/19 Principal diagnosis: Crohn's, diverticulitis Interval history: No acute distress. Reports continue LLQ abd pain w/o change but states diarrhea is improved. BM this am with soft stool per nursing. No signs of bleeding. No vomiting. Tolerating liquids. Objective - Constitutional Vitals: Temp Pulse Resp BP Pulse Ox 98.1 F 67 20 142/87 99 10/17/19 05:43 10/17/19 05:43 10/17/19 05:43 10/17/19 05:43 10/17/19 05:43 General appearance: no acute distress - EENT Eyes: PERRL, EOM intact ENT: hearing intact - Respiratory Respiratory effort: normal - Cardiovascular Rhythm: regular - Gastrointestinal General gastrointestinal: Present: soft, tender (slight), non-distended, normal bowel sounds - Neurologic Neurological: alert and oriented x3 - Labs CBC & Chem 7: 10/17/19 09:01 10/17/19 09:01 Labs: Laboratory Results - last 24 hr 10/17/19 10/17/19 09:01 09:01 WBC 7.1 RBC 4.00 Hgb 9.4 L Hct 30.6 L MCV 76 L MCH 24 L MCHC 31 L RDW 16.3 H Plt Count 469 H [place] % (Auto) Mechanical Assembly Sodium 136 L Potassium 4.1 Chloride 99.4 Carbon Dioxide 20 L Anion Gap 21 BUN 14 Creatinine 1.4 Estimated GFR > 60 BUN/Creatinine Ratio 10 Glucose 121 H Calcium 9.0 <SHANON RIVERA - Last Filed: 10/17/19 18:41> Assessment and Plan I have reviewed the advanced practitioner's evaluation, assessment, and plan, and agree with the assessment and plan. I note the following notes/additions: Patient concerned b/c his son just had to go to ER with fever and ear infection Regarding his own symptoms, gradual improvement, continue Abx and gradual advancing diet and f/u with [facility] (his outpatient physicians) - Patient Problems (1) Acute diverticulitis Current Visit: Yes Status: Acute (2) Crohn's disease Current Visit: Yes Status: Chronic Qualifiers: Gastrointestinal tract location: unspecified location Objective - Constitutional Vitals: Temp Pulse Resp BP Pulse Ox 98.4 F 89 20 133/89 96 10/17/19 15:34 10/17/19 15:36 10/17/19 15:34 10/17/19 15:34 10/17/19 15:36 - Labs CBC & Chem 7: 10/17/19 09:01 10/17/19 09:01 Labs: Laboratory Results - last 24 hr 10/17/19 10/17/19 09:01 09:01 WBC 7.1 RBC 4.00 Hgb 9.4 L Hct 30.6 L MCV 76 L MCH 24 L MCHC 31 L RDW 16.3 H Plt Count 469 H [place] % (Auto) Mechanical Assembly Add Manual Diff Complete Total Counted 100 Seg Neuts % (Manual) 84.0 H Band Neutrophils % 1.0 Lymphocytes % (Manual) 7.0 L Reactive Lymphs % (Man) 2.0 Monocytes % (Manual) 6.0 Eosinophils % (Manual) 0 Basophils % (Manual) 0 Metamyelocytes % 0 Myelocytes % 0 Promyelocytes % 0 Blast Cells % 0 Nucleated RBC % Not Reportable Seg Neutrophils # Man 6.0 Band Neutrophils # 0.1 Lymphocytes # (Manual) 0.5 L Abs React Lymphs (Man) 0.1 Monocytes # (Manual) 0.4 Eosinophils # (Manual) 0.0 Basophils # (Manual) 0.0 Metamyelocytes # 0.0 Myelocytes # 0.0 Promyelocytes # 0.0 Blast Cells # 0.0 WBC Morphology Not Reportable Hypersegmented Neuts Not Reportable Hyposegmented Neuts Not Reportable Hypogranular Neuts Not Reportable Smudge Cells Not Reportable Toxic Granulation Not Reportable Toxic Vacuolation Not Reportable Dohle Bodies Not Reportable Pelger-Huet Anomaly Not Reportable Seng Rods Not Reportable Platelet Estimate Consistent w auto Clumped Platelets Not Reportable Plt Clumps, EDTA Not Reportable Large Platelets Not Reportable Giant Platelets Not Reportable Platelet Satelliting Not Reportable Plt Morphology Comment Not Reportable RBC Morphology Not Reportable Dimorphic RBCs Not Reportable Polychromasia Not Reportable Hypochromasia 1+ Poikilocytosis Not Reportable Anisocytosis 1+ Microcytosis Not Reportable Macrocytosis Not Reportable Spherocytes Not Reportable Pappenheimer Bodies Not Reportable Sickle Cells Not Reportable Target Cells Not Reportable Tear Drop Cells Not Reportable Ovalocytes Not Reportable Helmet Cells Not Reportable Preston-[place] Bodies Not Reportable [place] Rings Not Reportable Kwadwo Cells Not Reportable Bite Cells Not Reportable Crenated Cell Not Reportable Elliptocytes Not Reportable Acanthocytes (Spur) Not Reportable Rouleaux Not Reportable Hemoglobin C Crystals Not Reportable Schistocytes Not Reportable Malaria parasites Not Reportable Jorge Alberto Bodies Not Reportable Hem Pathologist Commnt No Sodium 136 L Potassium 4.1 Chloride 99.4 Carbon Dioxide 20 L Anion Gap 21 BUN 14 Creatinine 1.4 Estimated GFR > 60 BUN/Creatinine Ratio 10 Glucose 121 H Calcium 9.0
--- NOTE | 2019-10-17 13:27 | Progress Note ---
Assessment and Plan Cultures: 10/15/2019 blood cultures: Pending A&P - 40-year-old male with a past medical history of Crohn's disease and diverticulitis admitted with recurrent diverticulitis #diverticulitis - recommend continuing treatment with Zosyn for now, can stop Flagyl due to overlapping spectra with Zosyn. #Crohn's: Per GI, receiving Humira. #cephalosporin and fluoroquinolone allergies: Currently tolerating Zosyn. reports hives and shortness of breath associated with quinolones Recommendations: -continue Zosyn - follow up for symptomatic improvement - Likely to D/C on Augmentin and symptoms improved. Plan on 2 weeks from initiation of Zosyn. Stop date: 10/30/2019 Thank you for the consult, will follow. Sarah Silva MD [facility] ([facility]) M: [phone] O: [phone] F: [phone] Subjective Date of service: 10/17/19 Principal diagnosis: Crohn's, diverticulitis Interval history: febrile this morning to 103, with a normal white count. Reports diarrhea is improving. Objective - Exam Narrative Exam: Constitutional: Alert, cooperative. No acute distress Head, Ears, Nose: Normocephalic, atraumatic. External ears, nose normal Oral: dentition fair, no thrush Cardiovascular: S1, S2 normal. Respiratory: Good air entry, clear to auscultation bilaterally GI: Soft, +tender; bowel sounds normal. No peritoneal signs. Musculoskeletal: No pedal edema, no cyanosis. Skin: No rash or abscess Hem/Lymphatic: No palpable cervical or supraclavicular nodes. No lymphangitis Psych: Mood ok. Affect normal Neurological: Awake, alert, oriented. No gross abnormality - Constitutional Vitals: Vital Signs Temp Pulse Resp BP Pulse Ox 98.1 F 67 20 142/87 99 10/17/19 05:43 10/17/19 05:43 10/17/19 05:43 10/17/19 05:43 10/17/19 05:43 Temperature -Last 24 Hours Temperature 98.1 F Temperature 98.2 F Temperature 98.8 F - Labs CBC & Chem 7: 10/17/19 09:01 10/17/19 09:01 Labs: Abnormal lab results 10/17/19 10/17/19 Range/Units 09:01 09:01 Hgb 9.4 L (11.8-15.2) gm/dl Hct 30.6 L (35.5-45.6) % MCV 76 L (84-94) fl MCH 24 L (28-32) pg MCHC 31 L (32-34) % RDW 16.3 H (13.2-15.2) % Plt Count 469 H (140-440) K/mm3 Sodium 136 L (137-145) mmol/L Carbon Dioxide 20 L (22-30) mmol/L Glucose 121 H (75-100) mg/dL
--- NOTE | 2019-10-17 13:50 | Progress Note ---
Assessment and Plan Assessment and plan: 48-year-old man with history of Crohn's disease and diverticular disease who presents to the hospital with fevers chills and left lower quadrant pain x3 days. Associated with nausea vomiting and diarrhea. Past medical history includes hypertension, CHF, history of DVT status post IVC filter, depression anxiety panic attacks, Crohn's disease diverticulitis, acid reflux, osteomyelitis Acute diverticulitis/sepsis Antibiotics, IV fluids -Still having high fevers. Empiric oral vancomycin until C. difficile is resulted, he had cdiff infection last year Crohn's disease exacerbation On Humira at home. Took as recently as last week. GI input appreciated, avoid steroids for now Chronic systolic CHF, EF 45% Not in exacerbation, optimize meds prior to discharge. Moderate malnutrition Dietitian consult [facility]-vasomotor nephropathy improving on IVF dvt ppx- heparin sq History Interval history: Review of systems Constitutional: Still having high-grade fevers and malaise. No joint pains CVS: No chest pain, no orthopnea, no pedal edema GI: Reports having abdominal pain, nausea and diarrhea. Respiratory: , no wheezing, no coughing Hospitalist Physical - Physical exam Narrative exam: General.: Appears ill, cachectic HEENT: Moist mucous membranes, extraocular muscles intact, no lymphadenopathy Neck: supple Cardiac: S1-S2 heard Lungs: clear to auscultation bilaterally Abdomen: soft , tender, nondistended, bowel sounds positive Extremities: no edema clubbing or cyanosis Skin: no rash or lesions Neurologic: no gross focal deficits Psych: calm, and cooperative - Constitutional Vitals: Temp Pulse Resp BP Pulse Ox 98.1 F 67 20 142/87 99 10/17/19 05:43 10/17/19 05:43 10/17/19 05:43 10/17/19 05:43 10/17/19 05:43 Results - Labs CBC & Chem 7: 10/17/19 09:01 10/17/19 09:01 Labs: Laboratory Last Values WBC 7.1 K/mm3 (4.5-11.0) 10/17/19 09:01 RBC 4.00 M/mm3 (3.65-5.03) 10/17/19 09:01 Hgb 9.4 gm/dl (11.8-15.2) L 10/17/19 09:01 Hct 30.6 % (35.5-45.6) L 10/17/19 09:01 MCV 76 fl (84-94) L 10/17/19 09:01 MCH 24 pg (28-32) L 10/17/19 09:01 MCHC 31 % (32-34) L 10/17/19 09:01 RDW 16.3 % (13.2-15.2) H 10/17/19 09:01 Plt Count 469 K/mm3 (140-440) H 10/17/19 09:01 Stokes % (Auto) Carton Stapler 10/17/19 09:01 Add Manual Diff Complete 10/15/19 12:58 Total Counted 100 10/15/19 12:58 Seg Neuts % (Manual) 83.0 % (40.0-70.0) H 10/15/19 12:58 Band Neutrophils % 0 % 10/15/19 12:58 Lymphocytes % (Manual) 3.0 % (13.4-35.0) L 10/15/19 12:58 Reactive Lymphs % (Man) 0 % 10/15/19 12:58 Monocytes % (Manual) 13.0 % (0.0-7.3) H 10/15/19 12:58 Eosinophils % (Manual) 1.0 % (0.0-4.3) 10/15/19 12:58 Basophils % (Manual) 0 % (0.0-1.8) 10/15/19 12:58 Metamyelocytes % 0 % 10/15/19 12:58 Myelocytes % 0 % 10/15/19 12:58 Promyelocytes % 0 % 10/15/19 12:58 Blast Cells % 0 % 10/15/19 12:58 Nucleated RBC % Not Reportable 10/15/19 12:58 Seg Neutrophils # Man 5.8 K/mm3 (1.8-7.7) 10/15/19 12:58 Band Neutrophils # 0.0 K/mm3 10/15/19 12:58 Lymphocytes # (Manual) 0.2 K/mm3 (1.2-5.4) L 10/15/19 12:58 Abs React Lymphs (Man) 0.0 K/mm3 10/15/19 12:58 Monocytes # (Manual) 0.9 K/mm3 (0.0-0.8) H 10/15/19 12:58 Eosinophils # (Manual) 0.1 K/mm3 (0.0-0.4) 10/15/19 12:58 Basophils # (Manual) 0.0 K/mm3 (0.0-0.1) 10/15/19 12:58 Metamyelocytes # 0.0 K/mm3 10/15/19 12:58 Myelocytes # 0.0 K/mm3 10/15/19 12:58 Promyelocytes # 0.0 K/mm3 10/15/19 12:58 Blast Cells # 0.0 K/mm3 10/15/19 12:58 WBC Morphology Not Reportable 10/15/19 12:58 Hypersegmented Neuts Not Reportable 10/15/19 12:58 Hyposegmented Neuts Not Reportable 10/15/19 12:58 Hypogranular Neuts Not Reportable 10/15/19 12:58 Smudge Cells Not Reportable 10/15/19 12:58 Toxic Granulation Not Reportable 10/15/19 12:58 Toxic Vacuolation Not Reportable 10/15/19 12:58 Dohle Bodies Not Reportable 10/15/19 12:58 Pelger-Huet Anomaly Not Reportable 10/15/19 12:58 Seng Rods Not Reportable 10/15/19 12:58 Platelet Estimate Consistent w auto 10/15/19 12:58 Clumped Platelets Not Reportable 10/15/19 12:58 Plt Clumps, EDTA Not Reportable 10/15/19 12:58 Large Platelets Not Reportable 10/15/19 12:58 Giant Platelets Not Reportable 10/15/19 12:58 Platelet Satelliting Not Reportable 10/15/19 12:58 Plt Morphology Comment Not Reportable 10/15/19 12:58 RBC Morphology Not Reportable 10/15/19 12:58 Dimorphic RBCs Not Reportable 10/15/19 12:58 Polychromasia Not Reportable 10/15/19 12:58 Hypochromasia Not Reportable 10/15/19 12:58 Poikilocytosis Not Reportable 10/15/19 12:58 Anisocytosis 1+ 10/15/19 12:58 Microcytosis Not Reportable 10/15/19 12:58 Macrocytosis Not Reportable 10/15/19 12:58 Spherocytes Not Reportable 10/15/19 12:58 Pappenheimer Bodies Not Reportable 10/15/19 12:58 Sickle Cells Not Reportable 10/15/19 12:58 Target Cells Few 10/15/19 12:58 Tear Drop Cells Not Reportable 10/15/19 12:58 Ovalocytes Not Reportable 10/15/19 12:58 Helmet Cells Not Reportable 10/15/19 12:58 [place] Bodies Not Reportable 10/15/19 12:58 [place] Rings Not Reportable 10/15/19 12:58 [place] Cells Not Reportable 10/15/19 12:58 Bite Cells Not Reportable 10/15/19 12:58 Crenated Cell Not Reportable 10/15/19 12:58 Elliptocytes Not Reportable 10/15/19 12:58 Acanthocytes (Spur) Not Reportable 10/15/19 12:58 Rouleaux Not Reportable 10/15/19 12:58 Hemoglobin C Crystals Not Reportable 10/15/19 12:58 Schistocytes Not Reportable 10/15/19 12:58 Malaria parasites Not Reportable 10/15/19 12:58 Jorge Alberto Bodies Not Reportable 10/15/19 12:58 Hem Pathologist Commnt No 10/15/19 12:58 Sodium 136 mmol/L (137-145) L 10/17/19 09:01 Potassium 4.1 mmol/L (3.6-5.0) 10/17/19 09:01 Chloride 99.4 mmol/L (98-107) 10/17/19 09:01 Carbon Dioxide 20 mmol/L (22-30) L 10/17/19 09:01 Anion Gap 21 mmol/L 10/17/19 09:01 BUN 14 mg/dL (9-20) 10/17/19 09:01 Creatinine 1.4 mg/dL (0.8-1.5) 10/17/19 09:01 Estimated GFR > 60 ml/min 10/17/19 09:01 BUN/Creatinine Ratio 10 % 10/17/19 09:01 Glucose 121 mg/dL (75-100) H 10/17/19 09:01 Calcium 9.0 mg/dL (8.4-10.2) 10/17/19 09:01 Iron 12 ug/dL (49-181) L 10/16/19 07:16 TIBC 278 mcg/dL (250-450) 10/16/19 07:16 % Saturation 4.32 % 10/16/19 07:16 Transferrin 246 mg/dl (180-329) 10/16/19 07:16 Total Bilirubin 0.20 mg/dL (0.1-1.2) 10/15/19 12:58 Direct Bilirubin < 0.2 mg/dL (0-0.2) 10/15/19 12:58 Indirect Bilirubin 0.0 mg/dL 10/15/19 12:58 AST 25 units/L (5-40) 10/15/19 12:58 ALT 11 units/L (7-56) 10/15/19 12:58 Alkaline Phosphatase 89 units/L (35-129) 10/15/19 12:58 Total Protein 7.4 g/dL (6.3-8.2) 10/15/19 12:58 Albumin 3.4 g/dL (3.9-5) L 10/15/19 12:58 Albumin/Globulin Ratio 0.9 % 10/15/19 12:58 Lipase 24 units/L (13-60) 10/15/19 12:58 Vitamin B12 562.2 pg/mL (211-911) 10/16/19 07:16 Active Medications - Current Medications Current Medications: Generic Name Dose Route Start Last Admin Trade Name Freq PRN Reason Stop Dose Admin Acetaminophen 650 mg 10/15/19 21:07 10/17/19 10:42 Tylenol PO 650 mg Q4H PRN Administration Pain MILD(1-3)/Fever >100.5/BEAULIEU Famotidine 20 mg 10/15/19 22:00 10/17/19 10:44 Pepcid IV 20 mg BID ZACHERY Administration Heparin Sodium (Porcine) 5,000 unit 10/16/19 10:00 10/17/19 10:56 Heparin SUB-Q 5,000 unit Q12HR ZACHERY Administration Hydromorphone HCl 1 mg 10/15/19 19:47 10/17/19 12:12 Dilaudid IV 1 mg Q4H PRN Administration Pain , Severe (7-10) Piperacillin Sod/Tazobactam Sod 4.5 gm in 100 mls @ 200 mls/hr 10/15/19 22:00 10/17/19 05:31 Zosyn/Ns 4.5gm/100ml IV 200 mls/hr Q8HR ZACHERY Administration Protocol Metoclopramide HCl 10 mg 10/15/19 21:07 Reglan IV Q6H PRN Nausea And Vomiting Ondansetron HCl 4 mg 10/15/19 21:07 10/17/19 12:12 Zofran IV 4 mg Q3H PRN Administration Nausea And Vomiting Sodium Chloride 10 ml 10/15/19 22:00 10/17/19 10:49 Sodium Chloride Flush Syringe 10 Ml IV 10 ml BID ZACHERY Administration Sodium Chloride 10 ml 10/15/19 21:07 10/17/19 03:57 Sodium Chloride Flush Syringe 10 Ml IV 10 ml PRN PRN Administration LINE FLUSH
[2019-10-17 14:30] LABS: Anisocytosis 1+; Band Neutrophils # (Manual) 0.1 K/mm3; Basophils % (Manual) 0 % (0.0-1.8); Eosinophils % (Manual) 0 % (0.0-4.3); Hypochromasia 1+; Platelet Estimate Consistent w Auto; Total Cells Counted 100
[2019-10-17] MEDS: SODIUM CHLORIDE 0.9% 1000 ML 1,000 ML IV SCH (15:45)
[2019-10-17] MEDS: methylPREDNISolone Sod Suc 500 MG in SODIUM CHLORIDE 0.9% 100 ML IV SCH (17:24)
[2019-10-17] MEDS: VANCOMYCIN 250 MG/10 ML ORAL LIQD PO SCH (18:32)
[2019-10-18] MEDS: HYDROmorphone 1 MG/1 ML INJ IV PRN ×6 (00:56→21:15)
[2019-10-18] MEDS: ONDANSETRON 4 MG/2 ML INJ IV PRN ×6 (00:57→21:16)
[2019-10-18] MEDS: HEPARIN 5,000 UNIT/1 ML VIAL SUB-Q SCH ×3 (01:01→21:16)
[2019-10-18] MEDS: FAMOTIDINE 20 MG/2 ML INJ IV SCH ×3 (01:01→21:16)
[2019-10-18] MEDS: VANCOMYCIN 250 MG/10 ML ORAL LIQD PO SCH ×5 (01:02→23:24)
[2019-10-18] MEDS: PIPERACIL/TAZOBACTA 4.5/NS 100 4.5 GM/100 ML VIAL IV SCH ×4 (01:03→21:16)
[2019-10-18] MEDS: SODIUM CHLORIDE 0.9% 1000 ML 1,000 ML IV SCH ×2 (01:21→17:13)
--- NOTE | 2019-10-18 12:50 | Gastroenterology Progress Note ---
<ELIZABETH OLIVAS - Last Filed: 10/18/19 12:50> Assessment and Plan 1.abdominal pain 2.N/V 3.diarrhea 4.abnormal CT (colitis vs diverticulitis) 5.sepsis 6.H/o Crohn's disease 7.H/o C-diff 8.H/o recurrent diverticulitis -afebrile -WBC WNL -H/H 9.4/30.6-trending up-no active signs of bleeding -LFTs and lipase WNL -stool negative for WBCs -culture and C-diff pending- f/u per ID -abd CT showed proximal sigmoid colitis vs diverticulitis with possible low- grade obstruction -etiology-patient with hx of Crohn's (dx in 1997; hx of multiple perirectal abscesses with I&D; currently on Humira; followed by Dr. Herbert at [facility]) with C- diff infection last year per pt and multiple episodes of recurrent diverticulitis (last episode in July 2019 per patient with recommendations given for a colostomy at [facility] due to "narrowing", along with inflammation of his colon seen on f/u colonoscopy; records unavailable) -clinically, patient is stable with diarrhea improving. +LLQ pain that is chronic and unchanged. No vomiting or signs of bleeding. -no plan for scope or recommendations for steroids at this time -advance diet as tolerated to GI soft -continue antibiotics per ID recommendations -continue supportive care -patient to f/u with primary GI at [facility] upon discharge for further management/consideration of surgical intervention -no further recommendation at this time per GI standpoint. Will sign off, please call if needed. Subjective Date of service: 10/18/19 Principal diagnosis: Crohn's, diverticulitis Interval history: No acute distress or new GI complaints. Tolerating full liquids. Objective - Constitutional Vitals: Temp Pulse Resp BP Pulse Ox 99.5 F 80 20 129/89 95 10/18/19 04:55 10/18/19 04:55 10/18/19 05:06 10/18/19 04:55 10/18/19 04:55 General appearance: no acute distress, other (thin, chronically ill appearing) - EENT Eyes: PERRL, EOM intact ENT: hearing intact - Respiratory Respiratory effort: normal - Cardiovascular Rhythm: regular - Gastrointestinal General gastrointestinal: Present: soft, tender (slight ), non-distended, normal bowel sounds - Integumentary Integumentary: Present: warm, dry - Neurologic Neurological: alert and oriented x3 - Labs CBC & Chem 7: 10/17/19 09:01 10/17/19 09:01 Labs: Laboratory Results - last 24 hr 10/16/19 10/17/19 07:16 09:01 Add Manual Diff Complete Total Counted 100 Seg Neuts % (Manual) 84.0 H Band Neutrophils % 1.0 Lymphocytes % (Manual) 7.0 L Reactive Lymphs % (Man) 2.0 Monocytes % (Manual) 6.0 Eosinophils % (Manual) 0 Basophils % (Manual) 0 Metamyelocytes % 0 Myelocytes % 0 Promyelocytes % 0 Blast Cells % 0 Nucleated RBC % Not Reportable Seg Neutrophils # Man 6.0 Band Neutrophils # 0.1 Lymphocytes # (Manual) 0.5 L Abs React Lymphs (Man) 0.1 Monocytes # (Manual) 0.4 Eosinophils # (Manual) 0.0 Basophils # (Manual) 0.0 Metamyelocytes # 0.0 Myelocytes # 0.0 Promyelocytes # 0.0 Blast Cells # 0.0 WBC Morphology Not Reportable Hypersegmented Neuts Not Reportable Hyposegmented Neuts Not Reportable Hypogranular Neuts Not Reportable Smudge Cells Not Reportable Toxic Granulation Not Reportable Toxic Vacuolation Not Reportable Dohle Bodies Not Reportable Pelger-Huet Anomaly Not Reportable Seng Rods Not Reportable Platelet Estimate Consistent w auto Clumped Platelets Not Reportable Plt Clumps, EDTA Not Reportable Large Platelets Not Reportable Giant Platelets Not Reportable Platelet Satelliting Not Reportable Plt Morphology Comment Not Reportable RBC Morphology Not Reportable Dimorphic RBCs Not Reportable Polychromasia Not Reportable Hypochromasia 1+ Poikilocytosis Not Reportable Anisocytosis 1+ Microcytosis Not Reportable Macrocytosis Not Reportable Spherocytes Not Reportable Pappenheimer Bodies Not Reportable Sickle Cells Not Reportable Target Cells Not Reportable Tear Drop Cells Not Reportable Ovalocytes Not Reportable Helmet Cells Not Reportable [place] Bodies Not Reportable [place] Rings Not Reportable [place] Cells Not Reportable Bite Cells Not Reportable Crenated Cell Not Reportable Elliptocytes Not Reportable Acanthocytes (Spur) Not Reportable Rouleaux Not Reportable Hemoglobin C Crystals Not Reportable Schistocytes Not Reportable Malaria parasites Not Reportable Jorge Alberto Bodies Not Reportable Hem Pathologist Commnt No RBC Folic Acid >1000 <SHANON RIVERA - Last Filed: 10/18/19 23:54> Assessment and Plan Patient seen and examined. I have reviewed the advanced practitioner's evaluation, assessment, and plan, and agree with them. I note the following additions: patient reports diarrhea starting to worsen, stool studies pending, if pos treat, if neg may need to initiate steroids - Patient Problems (1) Acute diverticulitis Current Visit: Yes Status: Acute (2) Crohn's disease Current Visit: Yes Status: Chronic Qualifiers: Gastrointestinal tract location: unspecified location Objective - Constitutional Vitals: Temp Pulse Resp BP Pulse Ox 98.5 F 79 20 143/94 97 10/18/19 22:18 10/18/19 22:18 10/18/19 22:18 10/18/19 22:18 10/18/19 22:18 - Labs CBC & Chem 7: 10/17/19 09:01 10/17/19 09:01 Labs: Laboratory Results - last 24 hr 10/16/19 07:16 RBC Folic Acid >1000
--- NOTE | 2019-10-18 13:28 | Progress Note ---
Assessment and Plan Cultures: 10/15/2019 blood cultures: Pending A&P - 40-year-old male with a past medical history of Crohn's disease and diverticulitis admitted with recurrent diverticulitis #diverticulitis - recommend continuing treatment with Zosyn for now, can stop Flagyl due to overlapping spectra with Zosyn. #Crohn's: Per GI, receiving Humira. #cephalosporin and fluoroquinolone allergies: Currently tolerating Zosyn. reports hives and shortness of breath associated with quinolones Recommendations: -continue Zosyn - follow up for symptomatic improvement - Likely to D/C on Augmentin and symptoms improved. Plan on 2 weeks from initiation of Zosyn. Stop date: 10/30/2019 - continue empiric PO vancomycin pending C diff testing. If negative, please s top. If positive would complete 10 day course. Stop date: 10/27/2019 - follow up in my clinic within 2 weeks of discharge. Thank you for the consult, will sign off. Please call with questions. Sarah Silva MD [facility] ([facility]) M: [phone] O: [phone] F: [phone] Subjective Date of service: 10/18/19 Principal diagnosis: Crohn's, diverticulitis Interval history: Improved abdominal pain. Afebrile, normal white count. Objective - Exam Narrative Exam: Constitutional: Alert, cooperative. No acute distress Head, Ears, Nose: Normocephalic, atraumatic. External ears, nose normal Oral: dentition fair, no thrush Cardiovascular: S1, S2 normal. Respiratory: Good air entry, clear to auscultation bilaterally GI: Soft, +tender; bowel sounds normal. No peritoneal signs. Musculoskeletal: No pedal edema, no cyanosis. Skin: No rash or abscess Hem/Lymphatic: No palpable cervical or supraclavicular nodes. No lymphangitis Psych: Mood ok. Affect normal Neurological: Awake, alert, oriented. No gross abnormality - Constitutional Vitals: Vital Signs Temp Pulse Resp BP Pulse Ox 99.5 F 80 20 129/89 95 10/18/19 04:55 10/18/19 04:55 10/18/19 05:06 10/18/19 04:55 10/18/19 04:55 Temperature -Last 24 Hours Temperature 99.5 F Temperature 98.7 F Temperature 98.4 F - Labs CBC & Chem 7: 10/17/19 09:01 10/17/19 09:01 Labs: Abnormal lab results 10/17/19 Range/Units 09:01 Seg Neuts % (Manual) 84.0 H (40.0-70.0) % Lymphocytes % (Manual) 7.0 L (13.4-35.0) % Lymphocytes # (Manual) 0.5 L (1.2-5.4) K/mm3
--- NOTE | 2019-10-18 15:03 | Progress Note ---
Assessment and Plan Assessment and plan: 48-year-old man with history of Crohn's disease and diverticular disease who presents to the hospital with fevers chills and left lower quadrant pain x3 days. Associated with nausea vomiting and diarrhea. Past medical history includes hypertension, CHF, history of DVT status post IVC filter, depression anxiety panic attacks, Crohn's disease diverticulitis, acid reflux, osteomyelitis Acute diverticulitis -colitis/sepsis Antibiotics, IV fluids -Still having high fevers. -Current C. difficile, has had C. difficile 13 times in 5 years. Empiric oral vancomycin until C. difficile is resulted, will most likely need vancomycin taper at time of discharge Crohn's disease exacerbation On Humira at home. Took as recently as last week. GI input appreciated, avoid steroids for now Chronic systolic CHF, EF 45% Not in exacerbation, optimize meds prior to discharge. Moderate malnutrition Dietitian consult [facility]-vasomotor nephropathy improving on IVF dvt ppx- heparin sq History Interval history: Review of systems Constitutional:no fever, c/o malaise. No joint pains CVS: No chest pain, no orthopnea, no pedal edema GI: Reports having abdominal pain, nausea and diarrhea. Respiratory: , no wheezing, no coughing Hospitalist Physical - Physical exam Narrative exam: General.: Appears ill, cachectic HEENT: Moist mucous membranes, extraocular muscles intact, no lymphadenopathy Neck: supple Cardiac: S1-S2 heard Lungs: clear to auscultation bilaterally Abdomen: soft , tender, nondistended, bowel sounds positive Extremities: no edema clubbing or cyanosis Skin: no rash or lesions Neurologic: no gross focal deficits Psych: calm, and cooperative - Constitutional Vitals: Temp Pulse Resp BP Pulse Ox 98.4 F 71 18 132/95 98 10/18/19 12:30 10/18/19 12:30 10/18/19 12:30 10/18/19 12:30 10/18/19 12:30 Results - Labs CBC & Chem 7: 10/17/19 09:01 10/17/19 09:01 Labs: Laboratory Last Values WBC 7.1 K/mm3 (4.5-11.0) 10/17/19 09:01 RBC 4.00 M/mm3 (3.65-5.03) 10/17/19 09:01 Hgb 9.4 gm/dl (11.8-15.2) L 10/17/19 09:01 Hct 30.6 % (35.5-45.6) L 10/17/19 09:01 MCV 76 fl (84-94) L 10/17/19 09:01 MCH 24 pg (28-32) L 10/17/19 09:01 MCHC 31 % (32-34) L 10/17/19 09:01 RDW 16.3 % (13.2-15.2) H 10/17/19 09:01 Plt Count 469 K/mm3 (140-440) H 10/17/19 09:01 [place] % (Auto) Glaze Wiper 10/17/19 09:01 Add Manual Diff Complete 10/17/19 09:01 Total Counted 100 10/17/19 09:01 Seg Neuts % (Manual) 84.0 % (40.0-70.0) H 10/17/19 09:01 Band Neutrophils % 1.0 % 10/17/19 09:01 Lymphocytes % (Manual) 7.0 % (13.4-35.0) L 10/17/19 09:01 Reactive Lymphs % (Man) 2.0 % 10/17/19 09:01 Monocytes % (Manual) 6.0 % (0.0-7.3) 10/17/19 09:01 Eosinophils % (Manual) 0 % (0.0-4.3) 10/17/19 09:01 Basophils % (Manual) 0 % (0.0-1.8) 10/17/19 09:01 Metamyelocytes % 0 % 10/17/19 09:01 Myelocytes % 0 % 10/17/19 09:01 Promyelocytes % 0 % 10/17/19 09:01 Blast Cells % 0 % 10/17/19 09:01 Nucleated RBC % Not Reportable 10/17/19 09:01 Seg Neutrophils # Man 6.0 K/mm3 (1.8-7.7) 10/17/19 09:01 Band Neutrophils # 0.1 K/mm3 10/17/19 09:01 Lymphocytes # (Manual) 0.5 K/mm3 (1.2-5.4) L 10/17/19 09:01 Abs React Lymphs (Man) 0.1 K/mm3 10/17/19 09:01 Monocytes # (Manual) 0.4 K/mm3 (0.0-0.8) 10/17/19 09:01 Eosinophils # (Manual) 0.0 K/mm3 (0.0-0.4) 10/17/19 09:01 Basophils # (Manual) 0.0 K/mm3 (0.0-0.1) 10/17/19 09:01 Metamyelocytes # 0.0 K/mm3 10/17/19 09:01 Myelocytes # 0.0 K/mm3 10/17/19 09:01 Promyelocytes # 0.0 K/mm3 10/17/19 09:01 Blast Cells # 0.0 K/mm3 10/17/19 09:01 WBC Morphology Not Reportable 10/17/19 09:01 Hypersegmented Neuts Not Reportable 10/17/19 09:01 Hyposegmented Neuts Not Reportable 10/17/19 09:01 Hypogranular Neuts Not Reportable 10/17/19 09:01 Smudge Cells Not Reportable 10/17/19 09:01 Toxic Granulation Not Reportable 10/17/19 09:01 Toxic Vacuolation Not Reportable 10/17/19 09:01 Dohle Bodies Not Reportable 10/17/19 09:01 Pelger-Huet Anomaly Not Reportable 10/17/19 09:01 Seng Rods Not Reportable 10/17/19 09:01 Platelet Estimate Consistent w auto 10/17/19 09:01 Clumped Platelets Not Reportable 10/17/19 09:01 Plt Clumps, EDTA Not Reportable 10/17/19 09:01 Large Platelets Not Reportable 10/17/19 09:01 Giant Platelets Not Reportable 10/17/19 09:01 Platelet Satelliting Not Reportable 10/17/19 09:01 Plt Morphology Comment Not Reportable 10/17/19 09:01 RBC Morphology Not Reportable 10/17/19 09:01 Dimorphic RBCs Not Reportable 10/17/19 09:01 Polychromasia Not Reportable 10/17/19 09:01 Hypochromasia 1+ 10/17/19 09:01 Poikilocytosis Not Reportable 10/17/19 09:01 Anisocytosis 1+ 10/17/19 09:01 Microcytosis Not Reportable 10/17/19 09:01 Macrocytosis Not Reportable 10/17/19 09:01 Spherocytes Not Reportable 10/17/19 09:01 Pappenheimer Bodies Not Reportable 10/17/19 09:01 Sickle Cells Not Reportable 10/17/19 09:01 Target Cells Not Reportable 10/17/19 09:01 Tear Drop Cells Not Reportable 10/17/19 09:01 Ovalocytes Not Reportable 10/17/19 09:01 Helmet Cells Not Reportable 10/17/19 09:01 [place] Bodies Not Reportable 10/17/19 09:01 [place] Rings Not Reportable 10/17/19 09:01 Kwadwo Cells Not Reportable 10/17/19 09:01 Bite Cells Not Reportable 10/17/19 09:01 Crenated Cell Not Reportable 10/17/19 09:01 Elliptocytes Not Reportable 10/17/19 09:01 Acanthocytes (Spur) Not Reportable 10/17/19 09:01 Rouleaux Not Reportable 10/17/19 09:01 Hemoglobin C Crystals Not Reportable 10/17/19 09:01 Schistocytes Not Reportable 10/17/19 09:01 Malaria parasites Not Reportable 10/17/19 09:01 Jorge Alberto Bodies Not Reportable 10/17/19 09:01 Hem Pathologist Commnt No 10/17/19 09:01 Sodium 136 mmol/L (137-145) L 10/17/19 09:01 Potassium 4.1 mmol/L (3.6-5.0) 10/17/19 09:01 Chloride 99.4 mmol/L (98-107) 10/17/19 09:01 Carbon Dioxide 20 mmol/L (22-30) L 10/17/19 09:01 Anion Gap 21 mmol/L 10/17/19 09:01 BUN 14 mg/dL (9-20) 10/17/19 09:01 Creatinine 1.4 mg/dL (0.8-1.5) 10/17/19 09:01 Estimated GFR > 60 ml/min 10/17/19 09:01 BUN/Creatinine Ratio 10 % 10/17/19 09:01 Glucose 121 mg/dL (75-100) H 10/17/19 09:01 Calcium 9.0 mg/dL (8.4-10.2) 10/17/19 09:01 Iron 12 ug/dL (49-181) L 10/16/19 07:16 TIBC 278 mcg/dL (250-450) 10/16/19 07:16 % Saturation 4.32 % 10/16/19 07:16 Transferrin 246 mg/dl (180-329) 10/16/19 07:16 Total Bilirubin 0.20 mg/dL (0.1-1.2) 10/15/19 12:58 Direct Bilirubin < 0.2 mg/dL (0-0.2) 10/15/19 12:58 Indirect Bilirubin 0.0 mg/dL 10/15/19 12:58 AST 25 units/L (5-40) 10/15/19 12:58 ALT 11 units/L (7-56) 10/15/19 12:58 Alkaline Phosphatase 89 units/L (35-129) 10/15/19 12:58 Total Protein 7.4 g/dL (6.3-8.2) 10/15/19 12:58 Albumin 3.4 g/dL (3.9-5) L 10/15/19 12:58 Albumin/Globulin Ratio 0.9 % 10/15/19 12:58 Lipase 24 units/L (13-60) 10/15/19 12:58 Vitamin B12 562.2 pg/mL (211-911) 10/16/19 07:16 RBC Folic Acid >1000 ng/mL (>280) 10/16/19 07:16 Active Medications - Current Medications Current Medications: Generic Name Dose Route Start Last Admin Trade Name Freq PRN Reason Stop Dose Admin Acetaminophen 650 mg 10/15/19 21:07 10/17/19 10:42 Tylenol PO 650 mg Q4H PRN Administration Pain MILD(1-3)/Fever >100.5/BEAULIEU Famotidine 20 mg 10/15/19 22:00 10/18/19 09:01 Pepcid IV 20 mg BID ZACHERY Administration Heparin Sodium (Porcine) 5,000 unit 10/16/19 10:00 10/18/19 09:00 Heparin SUB-Q 5,000 unit Q12HR ZACHERY Administration Hydromorphone HCl 1 mg 10/15/19 19:47 10/18/19 13:01 Dilaudid IV 1 mg Q4H PRN Administration Pain , Severe (7-10) Piperacillin Sod/Tazobactam Sod 4.5 gm in 100 mls @ 200 mls/hr 10/15/19 22:00 10/18/19 13:00 Zosyn/Ns 4.5gm/100ml IV 200 mls/hr Q8HR ZACHERY Administration Protocol Sodium Chloride 1,000 mls @ 125 mls/hr 10/17/19 14:00 10/18/19 01:21 Nacl 0.9% 1000 Ml IV 125 mls/hr DIRECT ZACHERY Administration Metoclopramide HCl 10 mg 10/15/19 21:07 Reglan IV Q6H PRN Nausea And Vomiting Ondansetron HCl 4 mg 10/15/19 21:07 10/18/19 13:01 Zofran IV 4 mg Q3H PRN Administration Nausea And Vomiting Sodium Chloride 10 ml 10/15/19 22:00 10/18/19 13:01 Sodium Chloride Flush Syringe 10 Ml IV 10 ml BID ZACHERY Administration Sodium Chloride 10 ml 10/15/19 21:07 10/17/19 03:57 Sodium Chloride Flush Syringe 10 Ml IV 10 ml PRN PRN Administration LINE FLUSH Vancomycin HCl 125 mg 10/17/19 16:00 10/18/19 13:00 Vancomycin Po PO 125 mg Q6HR ZACHERY Administration
[2019-10-19] MEDS: ONDANSETRON 4 MG/2 ML INJ IV PRN ×6 (01:17→23:12)
[2019-10-19] MEDS: HYDROmorphone 1 MG/1 ML INJ IV PRN ×6 (01:17→23:12)
[2019-10-19] MEDS: SODIUM CHLORIDE 0.9% 1000 ML 1,000 ML IV SCH ×3 (03:49→22:00)
[2019-10-19] MEDS: VANCOMYCIN 250 MG/10 ML ORAL LIQD PO SCH (05:16)
[2019-10-19] MEDS: PIPERACIL/TAZOBACTA 4.5/NS 100 4.5 GM/100 ML VIAL IV SCH ×3 (05:16→21:58)
[2019-10-19 08:27] LABS: Mean Corpuscular HGB Conc 30 % (32-34); Mean Corpuscular Volume 76 fl (84-94); Platelet Count 409 K/mm3 (140-440); Red Blood Count 4.27 M/mm3 (3.65-5.03); Red Cell Distribution Width 16.6 % (13.2-15.2)
[2019-10-19 08:29] LABS: Hematocrit 32.6 % (35.5-45.6); Hemoglobin 9.9 gm/dl (11.8-15.2)
[2019-10-19] MEDS: HEPARIN 5,000 UNIT/1 ML VIAL SUB-Q SCH ×2 (09:24→21:58)
[2019-10-19] MEDS: FAMOTIDINE 20 MG/2 ML INJ IV SCH (09:24)
[2019-10-19 09:44] LABS: Anisocytosis 1+; Basophils % (Manual) 0 % (0.0-1.8); Hypochromasia 1+; Platelet Estimate Consistent w Auto; Total Cells Counted 100
--- NOTE | 2019-10-19 13:45 | Progress Note ---
Assessment and Plan Cultures: 10/15/2019 blood cultures: Pending C diff negative A&P - 40-year-old male with a past medical history of Crohn's disease and dive rticulitis admitted with recurrent diverticulitis #diverticulitis - recommend continuing treatment with Zosyn for now, can stop Flagyl due to overlapping spectra with Zosyn. #Crohn's: Per GI, receiving Humira. #cephalosporin and fluoroquinolone allergies: Currently tolerating Zosyn. reports hives and shortness of breath associated with quinolones Recommendations: -continue Zosyn - OK to D/C on Augmentin 875/125mg q12h. Plan on 2 weeks from initiation of Zosyn. Stop date: 10/30/2019 - Stopped PO vanco due to negative C diff PCR - follow up in my clinic within 2 weeks of discharge. Thank you for the consult, will sign off. Please call with questions. Sarah Silva MD [facility] ([facility]) M: [phone] O: [phone] F: [phone] Subjective Date of service: 10/19/19 Principal diagnosis: Crohn's, diverticulitis Interval history: Afebrile, normal white count. C diff negative Objective - Exam Narrative Exam: Constitutional: Alert, cooperative. No acute distress Head, Ears, Nose: Normocephalic, atraumatic. External ears, nose normal Cardiovascular: S1, S2 normal. Respiratory: Good air entry, clear to auscultation bilaterally GI: Soft, +tender; bowel sounds normal. No peritoneal signs. Musculoskeletal: No pedal edema, no cyanosis. Skin: No rash or abscess Hem/Lymphatic: No palpable cervical or supraclavicular nodes. No lymphangitis Psych: Mood ok. Affect normal Neurological: Awake, alert, oriented. No gross abnormality - Constitutional Vitals: Vital Signs Temp Pulse Resp BP Pulse Ox 98.5 F 75 18 145/93 97 10/19/19 04:46 10/19/19 04:46 10/19/19 04:46 10/19/19 04:46 10/19/19 04:46 Temperature -Last 24 Hours Temperature 98.5 F Temperature 98.5 F Temperature 98.8 F - Labs CBC & Chem 7: 10/19/19 06:47 10/17/19 09:01 Labs: Abnormal lab results 10/19/19 Range/Units 06:47 WBC 3.7 L (4.5-11.0) K/mm3 Hgb 9.9 L (11.8-15.2) gm/dl Hct 32.6 L (35.5-45.6) % MCV 76 L (84-94) fl MCH 23 L (28-32) pg MCHC 30 L (32-34) % RDW 16.6 H (13.2-15.2) % Monocytes % (Manual) 11.0 H (0.0-7.3) % Lymphocytes # (Manual) 0.8 L (1.2-5.4) K/mm3
--- NOTE | 2019-10-19 14:12 | Progress Note ---
Assessment and Plan Assessment and plan: 48-year-old man with history of Crohn's disease and diverticular disease who presents to the hospital with fevers chills and left lower quadrant pain x3 days. Associated with nausea vomiting and diarrhea. Past medical history includes hypertension, CHF, history of DVT status post IVC filter, depression anxiety panic attacks, Crohn's disease diverticulitis, acid reflux, osteomyelitis Acute diverticulitis -recurrent sigmoiditis/sepsis Antibiotics, IV fluids -recurrent C. difficile, has had C. difficile 13 times in 5 years. C. difficile negative during this admission. Discontinue contact isolation -Patient is frustrated that he has not improved. States that he usually improves when he is at [place]. I have called [place] transfer center waiting to hear back from GI there. His GI doctor is Dr. Rafita Herbert Crohn's disease exacerbation On Humira at home. Took as recently as last week. GI input appreciated, avoid steroids for now Chronic systolic CHF, EF 45% Not in exacerbation, optimize meds prior to discharge. Moderate malnutrition Dietitian consult [facility]-vasomotor nephropathy improving on IVF dvt ppx- heparin sq History Interval history: Review of systems Constitutional:no fever, c/o malaise. No joint pains CVS: No chest pain, no orthopnea, no pedal edema GI: Reports having abdominal pain, nausea and diarrhea. No improvement of diarrhea. He still having multiple episodes of watery diarrhea with urgency. He barely makes it to the toilet. Respiratory: , no wheezing, no coughing Hospitalist Physical - Physical exam Narrative exam: General.: Appears ill, cachectic HEENT: Moist mucous membranes, extraocular muscles intact, no lymphadenopathy Neck: supple Cardiac: S1-S2 heard Lungs: clear to auscultation bilaterally Abdomen: soft , tender, nondistended, bowel sounds positive Extremities: no edema clubbing or cyanosis Skin: no rash or lesions Neurologic: no gross focal deficits Psych: calm, and cooperative - Constitutional Vitals: Temp Pulse Resp BP Pulse Ox 98.5 F 75 18 145/93 97 10/19/19 04:46 10/19/19 04:46 10/19/19 04:46 10/19/19 04:46 10/19/19 04:46 Results - Labs CBC & Chem 7: 10/19/19 06:47 10/17/19 09:01 Labs: Laboratory Last Values WBC 3.7 K/mm3 (4.5-11.0) L 10/19/19 06:47 RBC 4.27 M/mm3 (3.65-5.03) 10/19/19 06:47 Hgb 9.9 gm/dl (11.8-15.2) L 10/19/19 06:47 Hct 32.6 % (35.5-45.6) L 10/19/19 06:47 MCV 76 fl (84-94) L 10/19/19 06:47 MCH 23 pg (28-32) L 10/19/19 06:47 MCHC 30 % (32-34) L 10/19/19 06:47 RDW 16.6 % (13.2-15.2) H 10/19/19 06:47 Plt Count 409 K/mm3 (140-440) 10/19/19 06:47 [place] % (Auto) Intermodal Dispatcher 10/19/19 06:47 Add Manual Diff Complete 10/19/19 06:47 Total Counted 100 10/19/19 06:47 Seg Neuts % (Manual) 64.0 % (40.0-70.0) 10/19/19 06:47 Band Neutrophils % 0 % 10/19/19 06:47 Lymphocytes % (Manual) 21.0 % (13.4-35.0) 10/19/19 06:47 Reactive Lymphs % (Man) 0 % 10/19/19 06:47 Monocytes % (Manual) 11.0 % (0.0-7.3) H 10/19/19 06:47 Eosinophils % (Manual) 4.0 % (0.0-4.3) 10/19/19 06:47 Basophils % (Manual) 0 % (0.0-1.8) 10/19/19 06:47 Metamyelocytes % 0 % 10/19/19 06:47 Myelocytes % 0 % 10/19/19 06:47 Promyelocytes % 0 % 10/19/19 06:47 Blast Cells % 0 % 10/19/19 06:47 Nucleated RBC % Not Reportable 10/19/19 06:47 Seg Neutrophils # Man 2.4 K/mm3 (1.8-7.7) 10/19/19 06:47 Band Neutrophils # 0.0 K/mm3 10/19/19 06:47 Lymphocytes # (Manual) 0.8 K/mm3 (1.2-5.4) L 10/19/19 06:47 Abs React Lymphs (Man) 0.0 K/mm3 10/19/19 06:47 Monocytes # (Manual) 0.4 K/mm3 (0.0-0.8) 10/19/19 06:47 Eosinophils # (Manual) 0.1 K/mm3 (0.0-0.4) 10/19/19 06:47 Basophils # (Manual) 0.0 K/mm3 (0.0-0.1) 10/19/19 06:47 Metamyelocytes # 0.0 K/mm3 10/19/19 06:47 Myelocytes # 0.0 K/mm3 10/19/19 06:47 Promyelocytes # 0.0 K/mm3 10/19/19 06:47 Blast Cells # 0.0 K/mm3 10/19/19 06:47 WBC Morphology Not Reportable 10/19/19 06:47 Hypersegmented Neuts Not Reportable 10/19/19 06:47 Hyposegmented Neuts Not Reportable 10/19/19 06:47 Hypogranular Neuts Not Reportable 10/19/19 06:47 Smudge Cells Not Reportable 10/19/19 06:47 Toxic Granulation Not Reportable 10/19/19 06:47 Toxic Vacuolation Not Reportable 10/19/19 06:47 Dohle Bodies Not Reportable 10/19/19 06:47 Pelger-Huet Anomaly Not Reportable 10/19/19 06:47 Seng Rods Not Reportable 10/19/19 06:47 Platelet Estimate Consistent w auto 10/19/19 06:47 Clumped Platelets Not Reportable 10/19/19 06:47 Plt Clumps, EDTA Not Reportable 10/19/19 06:47 Large Platelets Not Reportable 10/19/19 06:47 Giant Platelets Not Reportable 10/19/19 06:47 Platelet Satelliting Not Reportable 10/19/19 06:47 Plt Morphology Comment Not Reportable 10/19/19 06:47 RBC Morphology Not Reportable 10/19/19 06:47 Dimorphic RBCs Not Reportable 10/19/19 06:47 Polychromasia Not Reportable 10/19/19 06:47 Hypochromasia 1+ 10/19/19 06:47 Poikilocytosis Not Reportable 10/19/19 06:47 Anisocytosis 1+ 10/19/19 06:47 Microcytosis Not Reportable 10/19/19 06:47 Macrocytosis Not Reportable 10/19/19 06:47 Spherocytes Not Reportable 10/19/19 06:47 Pappenheimer Bodies Not Reportable 10/19/19 06:47 Sickle Cells Not Reportable 10/19/19 06:47 Target Cells Not Reportable 10/19/19 06:47 Tear Drop Cells Not Reportable 10/19/19 06:47 Ovalocytes Not Reportable 10/19/19 06:47 Helmet Cells Not Reportable 10/19/19 06:47 [place] Bodies Not Reportable 10/19/19 06:47 [place] Rings Not Reportable 10/19/19 06:47 Kwadwo Cells Not Reportable 10/19/19 06:47 Bite Cells Not Reportable 10/19/19 06:47 Crenated Cell Not Reportable 10/19/19 06:47 Elliptocytes Not Reportable 10/19/19 06:47 Acanthocytes (Spur) Not Reportable 10/19/19 06:47 Rouleaux Not Reportable 10/19/19 06:47 Hemoglobin C Crystals Not Reportable 10/19/19 06:47 Schistocytes Not Reportable 10/19/19 06:47 Malaria parasites Not Reportable 10/19/19 06:47 Jorge Alberto Bodies Not Reportable 10/19/19 06:47 Hem Pathologist Commnt No 10/19/19 06:47 Sodium 136 mmol/L (137-145) L 10/17/19 09:01 Potassium 4.1 mmol/L (3.6-5.0) 10/17/19 09:01 Chloride 99.4 mmol/L (98-107) 10/17/19 09:01 Carbon Dioxide 20 mmol/L (22-30) L 10/17/19 09:01 Anion Gap 21 mmol/L 10/17/19 09:01 BUN 14 mg/dL (9-20) 10/17/19 09:01 Creatinine 1.4 mg/dL (0.8-1.5) 10/17/19 09:01 Estimated GFR > 60 ml/min 10/17/19 09:01 BUN/Creatinine Ratio 10 % 10/17/19 09:01 Glucose 121 mg/dL (75-100) H 10/17/19 09:01 Calcium 9.0 mg/dL (8.4-10.2) 10/17/19 09:01 Iron 12 ug/dL (49-181) L 10/16/19 07:16 TIBC 278 mcg/dL (250-450) 10/16/19 07:16 % Saturation 4.32 % 10/16/19 07:16 Transferrin 246 mg/dl (180-329) 10/16/19 07:16 Total Bilirubin 0.20 mg/dL (0.1-1.2) 10/15/19 12:58 Direct Bilirubin < 0.2 mg/dL (0-0.2) 10/15/19 12:58 Indirect Bilirubin 0.0 mg/dL 10/15/19 12:58 AST 25 units/L (5-40) 10/15/19 12:58 ALT 11 units/L (7-56) 10/15/19 12:58 Alkaline Phosphatase 89 units/L (35-129) 10/15/19 12:58 Total Protein 7.4 g/dL (6.3-8.2) 10/15/19 12:58 Albumin 3.4 g/dL (3.9-5) L 10/15/19 12:58 Albumin/Globulin Ratio 0.9 % 10/15/19 12:58 Lipase 24 units/L (13-60) 10/15/19 12:58 Vitamin B12 562.2 pg/mL (211-911) 10/16/19 07:16 RBC Folic Acid >1000 ng/mL (>280) 10/16/19 07:16 C. difficile Tox (PCR) Negative (Negative) 10/16/19 10:15 Active Medications - Current Medications Current Medications: Generic Name Dose Route Start Last Admin Trade Name Freq PRN Reason Stop Dose Admin Acetaminophen 650 mg 10/15/19 21:07 10/17/19 10:42 Tylenol PO 650 mg Q4H PRN Administration Pain MILD(1-3)/Fever >100.5/BEAULIEU Famotidine 20 mg 10/19/19 22:00 Pepcid PO BID ZACHERY Heparin Sodium (Porcine) 5,000 unit 10/16/19 10:00 10/19/19 09:24 Heparin SUB-Q 5,000 unit Q12HR ZACHERY Administration Hydromorphone HCl 1 mg 10/15/19 19:47 10/19/19 13:09 Dilaudid IV 1 mg Q4H PRN Administration Pain , Severe (7-10) Piperacillin Sod/Tazobactam Sod 4.5 gm in 100 mls @ 200 mls/hr 10/15/19 22:00 10/19/19 13:09 Zosyn/Ns 4.5gm/100ml IV 200 mls/hr Q8HR ZACHERY Administration Protocol Sodium Chloride 1,000 mls @ 125 mls/hr 10/17/19 14:00 10/19/19 12:15 Nacl 0.9% 1000 Ml IV 125 mls/hr DIRECT ZACHERY Administration Metoclopramide HCl 10 mg 10/15/19 21:07 Reglan IV Q6H PRN Nausea And Vomiting Ondansetron HCl 4 mg 10/15/19 21:07 10/19/19 13:09 Zofran IV 4 mg Q3H PRN Administration Nausea And Vomiting Oxycodone/Acetaminophen 2 tab 10/19/19 13:38 Percocet 5/325 PO Q6H PRN Pain, Moderate (4-6) Sodium Chloride 10 ml 10/15/19 22:00 10/19/19 09:25 Sodium Chloride Flush Syringe 10 Ml IV 10 ml BID ZACHERY Administration Sodium Chloride 10 ml 10/15/19 21:07 10/17/19 03:57 Sodium Chloride Flush Syringe 10 Ml IV 10 ml PRN PRN Administration LINE FLUSH
[2019-10-19] MEDS: oxyCODONE /ACETAMINOPHEN 5-325MG TAB PO PRN ×2 (15:26→21:57)
[2019-10-19 15:46] LABS: BUN/Creatinine Ratio 4; Blood Urea Nitrogen 5 mg/dL (9-20); Calcium 9.2 mg/dL (8.4-10.2); Hemolysis Index 15
[2019-10-19] MEDS: FAMOTIDINE 20 MG TAB PO SCH (21:57)
[2019-10-20] MEDS: HYDROmorphone 1 MG/1 ML INJ IV PRN ×5 (04:56→22:24)
[2019-10-20] MEDS: PIPERACIL/TAZOBACTA 4.5/NS 100 4.5 GM/100 ML VIAL IV SCH ×3 (05:38→22:32)
[2019-10-20 05:56] LABS: Basophils % (Auto) 0.5 % (0.0-1.8); Eosinophils # (Auto) 0.1 K/mm3 (0.0-0.4); Eosinophils % (Auto) 3.1 % (0.0-4.3); Hemoglobin 9.7 gm/dl (11.8-15.2); Lymphocytes # (Auto) 0.9 K/mm3 (1.2-5.4); Lymphocytes % (Auto) 23.6 % (13.4-35.0); Mean Corpuscular HGB Conc 30 % (32-34); Mean Corpuscular Volume 75 fl (84-94); Monocytes # (Auto) 0.5 K/mm3 (0.0-0.8); Monocytes % (Auto) 13.7 % (0.0-7.3); Platelet Count 420 K/mm3 (140-440); Red Blood Count 4.26 M/mm3 (3.65-5.03); Red Cell Distribution Width 16.3 % (13.2-15.2)
[2019-10-20 06:25] LABS: BUN/Creatinine Ratio 5; Blood Urea Nitrogen 6 mg/dL (9-20); Calcium 8.8 mg/dL (8.4-10.2); Hemolysis Index 1
[2019-10-20] MEDS: oxyCODONE /ACETAMINOPHEN 5-325MG TAB PO PRN ×3 (06:40→20:31)
[2019-10-20] MEDS: SODIUM CHLORIDE 0.9% 1000 ML 1,000 ML IV SCH (08:03)
--- NOTE | 2019-10-20 08:11 | Progress Note ---
Assessment and Plan Assessment and plan: 48-year-old man with history of Crohn's disease and diverticular disease who presents to the hospital with fevers chills and left lower quadrant pain x3 days. Associated with nausea vomiting and diarrhea. Past medical history includes hypertension, CHF, history of DVT status post IVC filter, depression anxiety panic attacks, Crohn's disease diverticulitis, acid reflux, osteomyelitis Acute diverticulitis -recurrent sigmoiditis/sepsis Antibiotics, IV fluids -recurrent C. difficile, has had C. difficile 13 times in 5 years. C. difficile negative during this admission. Discontinue contact isolation -Patient is frustrated that he has not improved. States that he usually improves when he is at [place]. I have called [place] transfer center, spoke to his GI, Dr. Rafita Herbert. Apparently on diversion I do not have any beds. He recommended continuing antibiotics and IV steroids in the meantime. No plans to accept the patient at this time Crohn's disease exacerbation On Humira at home. 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 He recommended starting high-dose steroids as C. difficile has now been ruled out. Steroids restarted 10/20 Chronic systolic CHF, EF 45% Not in exacerbation, optimize meds prior to discharge. Moderate malnutrition Dietitian consult [facility]-vasomotor nephropathy improving on IVF dvt ppx- heparin sq History Interval history: Review of systems Constitutional:no fever, c/o malaise. No joint pains CVS: No chest pain, no orthopnea, no pedal edema GI: Reports having abdominal pain, nausea and diarrhea. No improvement of diarrhea. He still having multiple episodes of watery diarrhea with urgency. He barely makes it to the toilet. Respiratory: , no wheezing, no coughing Hospitalist Physical - Physical exam Narrative exam: General.: Appears ill, cachectic HEENT: Moist mucous membranes, extraocular muscles intact, no lymphadenopathy Neck: supple Cardiac: S1-S2 heard Lungs: clear to auscultation bilaterally Abdomen: soft , tender, nondistended, bowel sounds positive Extremities: no edema clubbing or cyanosis Skin: no rash or lesions Neurologic: no gross focal deficits Psych: calm, and cooperative - Constitutional Vitals: Temp Pulse Resp BP Pulse Ox 98.3 F 79 20 145/96 96 10/20/19 04:56 10/20/19 04:56 10/20/19 04:56 10/20/19 04:56 10/20/19 04:56 Results - Labs CBC & Chem 7: 10/20/19 05:16 10/20/19 05:16 Labs: Laboratory Last Values WBC 3.9 K/mm3 (4.5-11.0) L 10/20/19 05:16 RBC 4.26 M/mm3 (3.65-5.03) 10/20/19 05:16 Hgb 9.7 gm/dl (11.8-15.2) L 10/20/19 05:16 Hct 32.0 % (35.5-45.6) L 10/20/19 05:16 MCV 75 fl (84-94) L 10/20/19 05:16 MCH 23 pg (28-32) L 10/20/19 05:16 MCHC 30 % (32-34) L 10/20/19 05:16 RDW 16.3 % (13.2-15.2) H 10/20/19 05:16 Plt Count 420 K/mm3 (140-440) 10/20/19 05:16 Lymph % (Auto) 23.6 % (13.4-35.0) 10/20/19 05:16 [place] % (Auto) 13.7 % (0.0-7.3) H 10/20/19 05:16 Eos % (Auto) 3.1 % (0.0-4.3) 10/20/19 05:16 Baso % (Auto) 0.5 % (0.0-1.8) 10/20/19 05:16 Lymph # 0.9 K/mm3 (1.2-5.4) L 10/20/19 05:16 [place] # 0.5 K/mm3 (0.0-0.8) 10/20/19 05:16 Eos # 0.1 K/mm3 (0.0-0.4) 10/20/19 05:16 Baso # 0.0 K/mm3 (0.0-0.1) 10/20/19 05:16 Add Manual Diff Complete 10/19/19 06:47 Total Counted 100 10/19/19 06:47 Seg Neutrophils % 59.1 % (40.0-70.0) 10/20/19 05:16 Seg Neuts % (Manual) 64.0 % (40.0-70.0) 10/19/19 06:47 Band Neutrophils % 0 % 10/19/19 06:47 Lymphocytes % (Manual) 21.0 % (13.4-35.0) 10/19/19 06:47 Reactive Lymphs % (Man) 0 % 10/19/19 06:47 Monocytes % (Manual) 11.0 % (0.0-7.3) H 10/19/19 06:47 Eosinophils % (Manual) 4.0 % (0.0-4.3) 10/19/19 06:47 Basophils % (Manual) 0 % (0.0-1.8) 10/19/19 06:47 Metamyelocytes % 0 % 10/19/19 06:47 Myelocytes % 0 % 10/19/19 06:47 Promyelocytes % 0 % 10/19/19 06:47 Blast Cells % 0 % 10/19/19 06:47 Nucleated RBC % Not Reportable 10/19/19 06:47 Seg Neutrophils # 2.3 K/mm3 (1.8-7.7) 10/20/19 05:16 Seg Neutrophils # Man 2.4 K/mm3 (1.8-7.7) 10/19/19 06:47 Band Neutrophils # 0.0 K/mm3 10/19/19 06:47 Lymphocytes # (Manual) 0.8 K/mm3 (1.2-5.4) L 10/19/19 06:47 Abs React Lymphs (Man) 0.0 K/mm3 10/19/19 06:47 Monocytes # (Manual) 0.4 K/mm3 (0.0-0.8) 10/19/19 06:47 Eosinophils # (Manual) 0.1 K/mm3 (0.0-0.4) 10/19/19 06:47 Basophils # (Manual) 0.0 K/mm3 (0.0-0.1) 10/19/19 06:47 Metamyelocytes # 0.0 K/mm3 10/19/19 06:47 Myelocytes # 0.0 K/mm3 10/19/19 06:47 Promyelocytes # 0.0 K/mm3 10/19/19 06:47 Blast Cells # 0.0 K/mm3 10/19/19 06:47 WBC Morphology Not Reportable 10/19/19 06:47 Hypersegmented Neuts Not Reportable 10/19/19 06:47 Hyposegmented Neuts Not Reportable 10/19/19 06:47 Hypogranular Neuts Not Reportable 10/19/19 06:47 Smudge Cells Not Reportable 10/19/19 06:47 Toxic Granulation Not Reportable 10/19/19 06:47 Toxic Vacuolation Not Reportable 10/19/19 06:47 Dohle Bodies Not Reportable 10/19/19 06:47 Pelger-Huet Anomaly Not Reportable 10/19/19 06:47 Seng Rods Not Reportable 10/19/19 06:47 Platelet Estimate Consistent w auto 10/19/19 06:47 Clumped Platelets Not Reportable 10/19/19 06:47 Plt Clumps, EDTA Not Reportable 10/19/19 06:47 Large Platelets Not Reportable 10/19/19 06:47 Giant Platelets Not Reportable 10/19/19 06:47 Platelet Satelliting Not Reportable 10/19/19 06:47 Plt Morphology Comment Not Reportable 10/19/19 06:47 RBC Morphology Not Reportable 10/19/19 06:47 Dimorphic RBCs Not Reportable 10/19/19 06:47 Polychromasia Not Reportable 10/19/19 06:47 Hypochromasia 1+ 10/19/19 06:47 Poikilocytosis Not Reportable 10/19/19 06:47 Anisocytosis 1+ 10/19/19 06:47 Microcytosis Not Reportable 10/19/19 06:47 Macrocytosis Not Reportable 10/19/19 06:47 Spherocytes Not Reportable 10/19/19 06:47 Pappenheimer Bodies Not Reportable 10/19/19 06:47 Sickle Cells Not Reportable 10/19/19 06:47 Target Cells Not Reportable 10/19/19 06:47 Tear Drop Cells Not Reportable 10/19/19 06:47 Ovalocytes Not Reportable 10/19/19 06:47 Helmet Cells Not Reportable 10/19/19 06:47 [place] Bodies Not Reportable 10/19/19 06:47 [place] Rings Not Reportable 10/19/19 06:47 Kw[place]wo Cells Not Reportable 10/19/19 06:47 Bite Cells Not Reportable 10/19/19 06:47 Crenated Cell Not Reportable 10/19/19 06:47 Elliptocytes Not Reportable 10/19/19 06:47 Acanthocytes (Spur) Not Reportable 10/19/19 06:47 Rouleaux Not Reportable 10/19/19 06:47 Hemoglobin C Crystals Not Reportable 10/19/19 06:47 Schistocytes Not Reportable 10/19/19 06:47 Malaria parasites Not Reportable 10/19/19 06:47 Jorge Alberto Bodies Not Reportable 10/19/19 06:47 Hem Pathologist Commnt No 10/19/19 06:47 Sodium 140 mmol/L (137-145) 10/20/19 05:16 Potassium 3.7 mmol/L (3.6-5.0) 10/20/19 05:16 Chloride 106.0 mmol/L (98-107) 10/20/19 05:16 Carbon Dioxide 19 mmol/L (22-30) L 10/20/19 05:16 Anion Gap 19 mmol/L 10/20/19 05:16 BUN 6 mg/dL (9-20) L 10/20/19 05:16 Creatinine 1.2 mg/dL (0.8-1.5) 10/20/19 05:16 Estimated GFR > 60 ml/min 10/20/19 05:16 BUN/Creatinine Ratio 5 % 10/20/19 05:16 Glucose 92 mg/dL (75-100) 10/20/19 05:16 Calcium 8.8 mg/dL (8.4-10.2) 10/20/19 05:16 Phosphorus 2.60 mg/dL (2.5-4.5) 10/20/19 05:16 Magnesium 1.70 mg/dL (1.7-2.3) 10/20/19 05:16 Iron 12 ug/dL (49-181) L 10/16/19 07:16 TIBC 278 mcg/dL (250-450) 10/16/19 07:16 % Saturation 4.32 % 10/16/19 07:16 Transferrin 246 mg/dl (180-329) 10/16/19 07:16 Total Bilirubin 0.20 mg/dL (0.1-1.2) 10/15/19 12:58 Direct Bilirubin < 0.2 mg/dL (0-0.2) 10/15/19 12:58 Indirect Bilirubin 0.0 mg/dL 10/15/19 12:58 AST 25 units/L (5-40) 10/15/19 12:58 ALT 11 units/L (7-56) 10/15/19 12:58 Alkaline Phosphatase 89 units/L (35-129) 10/15/19 12:58 Total Protein 7.4 g/dL (6.3-8.2) 10/15/19 12:58 Albumin 3.4 g/dL (3.9-5) L 10/15/19 12:58 Albumin/Globulin Ratio 0.9 % 10/15/19 12:58 Lipase 24 units/L (13-60) 10/15/19 12:58 Vitamin B12 562.2 pg/mL (211-911) 10/16/19 07:16 RBC Folic Acid >1000 ng/mL (>280) 10/16/19 07:16 C. difficile Tox (PCR) Negative (Negative) 10/16/19 10:15 Active Medications - Current Medications Current Medications: Generic Name Dose Route Start Last Admin Trade Name Freq PRN Reason Stop Dose Admin Acetaminophen 650 mg 10/15/19 21:07 10/17/19 10:42 Tylenol PO 650 mg Q4H PRN Administration Pain MILD(1-3)/Fever >100.5/BEAULIEU Famotidine 20 mg 10/19/19 22:00 10/19/19 21:57 Pepcid PO 20 mg BID ZACHERY Administration Heparin Sodium (Porcine) 5,000 unit 10/16/19 10:00 10/19/19 21:58 Heparin SUB-Q 5,000 unit Q12HR ZACHERY Administration Hydromorphone HCl 1 mg 10/15/19 19:47 10/20/19 04:56 Dilaudid IV 1 mg Q4H PRN Administration Pain , Severe (7-10) Piperacillin Sod/Tazobactam Sod 4.5 gm in 100 mls @ 200 mls/hr 10/15/19 22:00 10/20/19 05:38 Zosyn/Ns 4.5gm/100ml IV 200 mls/hr Q8HR ZACHERY Administration Protocol Sodium Chloride 1,000 mls @ 125 mls/hr 10/17/19 14:00 10/20/19 08:03 Nacl 0.9% 1000 Ml IV 125 mls/hr DIRECT ZACHERY Administration Methylprednisolone Sodium 100 mls @ 200 mls/hr 10/20/19 10:00 Succinate 500 mg/ Sodium IV Chloride Q24HR ZACHERY Metoclopramide HCl 10 mg 10/15/19 21:07 Reglan IV Q6H PRN Nausea And Vomiting Ondansetron HCl 4 mg 10/15/19 21:07 10/19/19 23:12 Zofran IV 4 mg Q3H PRN Administration Nausea And Vomiting Oxycodone/Acetaminophen 2 tab 10/19/19 13:38 10/20/19 06:40 Percocet 5/325 PO 2 tab Q6H PRN Administration Pain, Moderate (4-6) Sodium Chloride 10 ml 10/15/19 22:00 10/19/19 23:43 Sodium Chloride Flush Syringe 10 Ml IV 10 ml BID ZACHERY Administration Sodium Chloride 10 ml 10/15/19 21:07 10/17/19 03:57 Sodium Chloride Flush Syringe 10 Ml IV 10 ml PRN PRN Administration LINE FLUSH
[2019-10-20] MEDS: ONDANSETRON 4 MG/2 ML INJ IV PRN ×4 (10:00→22:23)
[2019-10-20] MEDS: FAMOTIDINE 20 MG TAB PO SCH ×2 (10:01→22:23)
[2019-10-20] MEDS: HEPARIN 5,000 UNIT/1 ML VIAL SUB-Q SCH ×2 (10:01→22:23)
[2019-10-20] MEDS: methylPREDNISolone Sod Suc 500 MG in SODIUM CHLORIDE 0.9% 100 ML IV SCH (10:36)
[2019-10-21] MEDS: SODIUM CHLORIDE 0.9% 1000 ML 1,000 ML IV SCH ×2 (01:40→10:31)
[2019-10-21] MEDS: HYDROmorphone 1 MG/1 ML INJ IV PRN ×3 (02:22→10:17)
[2019-10-21] MEDS: ONDANSETRON 4 MG/2 ML INJ IV PRN ×3 (02:22→10:17)
[2019-10-21] MEDS: PIPERACIL/TAZOBACTA 4.5/NS 100 4.5 GM/100 ML VIAL IV SCH ×2 (05:58→13:33)
[2019-10-21] MEDS: oxyCODONE /ACETAMINOPHEN 5-325MG TAB PO PRN (06:21)
[2019-10-21] MEDS: HEPARIN 5,000 UNIT/1 ML VIAL SUB-Q SCH (10:18)
[2019-10-21] MEDS: methylPREDNISolone Sod Suc 500 MG in SODIUM CHLORIDE 0.9% 100 ML IV SCH (10:18)
[2019-10-21] MEDS: FAMOTIDINE 20 MG TAB PO SCH (10:18)
--- NOTE | 2019-10-21 12:01 | Discharge Summary ---
Providers - Providers Date of Admission: 10/15/19 16:00 Attending physician: DANNY SNELL MD 10/16/19 08:05 Consult to Physician [CONS] Routine Comment: Consulting Provider: HENRIETTA CARTER Physician Instructions: Reason For Exam: crohns, divericulitis 10/16/19 08:06 Consult to Physician [CONS] Routine Comment: Consulting Provider: ALIZA GILBERT Physician Instructions: Reason For Exam: sepsis 10/20/19 12:25 Midline [Consult to PICC Line RN] [CONS] Routine Reason For Exam: MIDLINE Type Line:: Midline Hospitalization Condition: Stable Hospital course: 48-year-old man with history of Crohn's disease and diverticular disease who presents to the hospital with fevers chills and left lower quadrant pain x3 days. Associated with nausea vomiting and diarrhea. Past medical history includes hypertension, CHF, history of DVT status post IVC filter, depression anxiety panic attacks, Crohn's disease diverticulitis, acid reflux, osteomyelitis Acute diverticulitis -recurrent sigmoiditis/sepsis received abx, improved, C. difficile was negative -Patient reported improvement in diarrhea prior to discharge Crohn's disease exacerbation On Humira at home. 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 He recommended starting high-dose steroids as C. difficile has now been ruled out. Steroids restarted 10/20, being discharged home on steroid taper Chronic systolic CHF, EF 45% Not in exacerbation, optimize meds prior to discharge. Moderate malnutrition Dietitian consult [facility]-vasomotor nephropathy Resolved with IV fluids dvt ppx- heparin sq Preventative health counseling performed for 17 minutes Disposition: TO HOME OR SELFCARE Time spent for discharge: 33 mins Core Measure Documentation - Palliative Care Palliative Care/ Comfort Measures: Not Applicable - Core Measures Any of the following diagnoses?: none Exam - Physical Exam Narrative exam: General.: cachectic HEENT: Moist mucous membranes, extraocular muscles intact, no lymphadenopathy Neck: supple Cardiac: S1-S2 heard Lungs: clear to auscultation bilaterally Abdomen: soft , tender, nondistended, bowel sounds positive Extremities: no edema clubbing or cyanosis Skin: no rash or lesions Neurologic: no gross focal deficits Psych: calm, and cooperative - Constitutional Vitals: Temp Pulse Resp BP Pulse Ox 97.5 F L 82 20 135/91 96 10/21/19 05:57 10/21/19 05:57 10/21/19 10:17 10/21/19 05:57 10/21/19 05:57 Plan Follow up with: PRIMARY CARE, [Referring] - 3-5 Days Prescriptions: Ciprofloxacin HCl [Ciprofloxacin TAB] 500 mg PO Q12HR #14 tab predniSONE [Deltasone] 10 mg PO .TAPER #48 tab metroNIDAZOLE [Flagyl] 500 mg PO Q8HR #21 tablet oxyCODONE /ACETAMINOPHEN [Percocet 5/325 mg] 2 tab PO Q6H PRN #20 tablet PRN Reason: Pain, Moderate (4-6)
[2019-10-21 15:41] VITALS: BP 161/107
== END 2019-10-21 13:30 | disposition home or self-care (01) | DRG 871 ==
LOC: ED 11:24 → 3A 16:00
PROVIDERS: ADMIT Internal Medicine; ATTEND Internal Medicine
PROC: 0XH833Z Insertion of Infusion Device into Right Upper Arm, Percutaneous Approach (ICD-10-PCS; principal; 2019-10-20)
DX: A41.9 Sepsis, unspecified organism (principal); N17.0 Acute kidney failure with tubular necrosis; I50.42 Chronic combined systolic (congestive) and diastolic (congestive) heart failure; K57.32 Diverticulitis of large intestine without perforation or abscess without bleeding; K50.90 Crohn's disease, unspecified, without complications; E44.0 Moderate protein-calorie malnutrition; I11.0 Hypertensive heart disease with heart failure; F32.9 Major depressive disorder, single episode, unspecified; F41.9 Anxiety disorder, unspecified; F17.210 Nicotine dependence, cigarettes, uncomplicated; D64.9 Anemia, unspecified; Z68.20 Body mass index [BMI] 20.0-20.9, adult; Z86.718 Personal history of other venous thrombosis and embolism
CPT/HCPCS: 36415; 71045; 74177; 80048; 80076; 82607; 82747; 83550; 83690; 83735; 84100; 85007; 85025; 87040; 87045; 87493; 93306; 99406; G0378; J1170; J1644; J2060; J2270; J2405; J2543; J2930; J3370; J7030; Q9967

== ENCOUNTER 2020-05-01 12:13 | Emergency (ER) | payer MEDICARE ==
--- NOTE | 2020-05-01 13:56 | Event Note ---
ED Screening Note Date of service: 05/01/20 Time: 13:55 ED Screening Note: Patient here with complaints of abdominal pain x1 week, worsening for the past 3 days History of Crohn's Patient was admitted for Crohn's flare 10/15/2019 and 03/08/2020 States pus in stools and severe abdominal pain Denies hematochezia This initial assessment/diagnostic orders/clinical plan/treatment(s) is/are subject to change based on patients health status, clinical progression and re- assessment by fellow clinical providers in the ED. Further treatment and workup at subsequent clinical providers discretion. Patient/guardian urged not to elope from the ED as their condition may be serious if not clinically assessed and managed. Initial orders include: Lab CT abdomen
[2020-05-01 14:25] LABS: Basophils # (Auto) 0.1 K/mm3 (0.0-0.1); Basophils % (Auto) 0.8 % (0.0-1.8); Eosinophils # (Auto) 0.2 K/mm3 (0.0-0.4); Hematocrit 38.3 % (35.5-45.6); Hemoglobin 12.1 gm/dl (11.8-15.2); Lymphocytes # (Auto) 0.4 K/mm3 (1.2-5.4); Lymphocytes % (Auto) 4.2 % (13.4-35.0); Mean Corpuscular HGB Conc 32 % (32-34); Mean Corpuscular Volume 82 fl (84-94); Monocytes # (Auto) 0.7 K/mm3 (0.0-0.8); Monocytes % (Auto) 8.4 % (0.0-7.3); Platelet Count 522 K/mm3 (140-440); Red Blood Count 4.66 M/mm3 (3.65-5.03); Red Cell Distribution Width 17.9 % (13.2-15.2)
[2020-05-01 15:10] LABS: BUN/Creatinine Ratio 9; Blood Urea Nitrogen 12 mg/dL (9-20); Calcium 9.7 mg/dL (8.4-10.2); Hemolysis Index 8
[2020-05-01 15:19] LABS: Alanine Aminotransferase 7 units/L (7-56)
[2020-05-01 15:24] LABS: Bilirubin,Direct < 0.2 mg/dL (0-0.2)
[2020-05-01] MEDS ORDERED: metroNIDAZOLE/NS 500 MG/100 ML 500 MG/100 ML BAG IV ONE (17:04)
[2020-05-01] MEDS ORDERED: MORPHINE 4 MG/1 ML INJ IV ONE (17:04)
[2020-05-01] MEDS ORDERED: SODIUM CHLORIDE 0.9% 1000 ML 1,000 ML IV ONE (17:04)
[2020-05-01] MEDS ORDERED: ONDANSETRON 4 MG/2 ML INJ IV ONE (17:04)
[2020-05-01 17:21] VITALS: BP 144/99
--- NOTE | 2020-05-01 17:31 | Emergency Department Report ---
ED Abdominal Pain HPI - General Chief Complaint: Abdominal Pain Stated Complaint: ABD PAIN Time Seen by Provider: 05/01/20 16:58 Source: patient Mode of arrival: Wheelchair Limitations: No Limitations - History of Present Illness Initial Comments: Patient is a 49-year-old male presents emergency room with complaints of lower abdominal pain and rectal pain that began a week ago but worsened in the last 2 days. He states that he has associated pus in his stool. He also has nausea and vomiting. He denies any blood in the stool. Patient states that he has had sweats and chills. He denies any hematochezia, melena, hematemesis. He states that he has not seen his GI doctor at [place] since October. Patient was admitted in the hospital in February 2020 and was found to have sigmoid colitis at that time but no other complications. - Related Data Home Medications Medication Instructions Recorded Confirmed Last Taken Folic Acid 03/09/20 Unknown Protonix 03/09/20 Unknown Zoloft 03/09/20 Unknown Previous Rx's Medication Instructions Recorded Last Taken Type Apixaban [Eliquis] 5 mg PO Q12HR tablet 03/12/20 Unknown Rx carvediloL [Coreg] 3.125 mg PO BID tablet 03/12/20 Unknown Rx levoFLOXacin [Levaquin] 750 mg PO QDAY #7 tablet 03/12/20 Unknown Rx metroNIDAZOLE [Flagyl] 500 mg PO Q8HR #21 tablet 03/12/20 Unknown Rx predniSONE [Deltasone] 40 mg PO QDAY 7 Days 03/12/20 Unknown Rx Prednisone [predniSONE 10 mg 10 mg PO .TAPER #1 tab.ds.pk 05/01/20 Unknown Rx (6-Day Pack, 21 Tabs)] Promethazine [Phenergan] 25 mg PO Q8HR PRN #10 tab 05/01/20 Unknown Rx levoFLOXacin [Levaquin] 750 mg PO QDAY 10 Days #10 tablet 05/01/20 Unknown Rx metroNIDAZOLE [Flagyl] 500 mg PO BID 10 Days #20 tab 05/01/20 Unknown Rx Allergies Allergy/AdvReac Type Severity Reaction Status Date / Time ceftriaxone Allergy Itching Verified 05/01/20 12:14 levofloxacin [From Levaquin] Allergy Itching Verified 05/01/20 12:14 shellfish derived Allergy Itching Verified 05/01/20 12:14 ED Review of Systems ROS: Stated complaint: ABD PAIN Other details as noted in HPI Comment: All other systems reviewed and negative ED Past Medical Hx - Past Medical History Hx Hypertension: Yes Hx Congestive Heart Failure: Yes Hx Deep Vein Thrombosis: No Hx Psychiatric Treatment: Yes (depression, anxiety, panic attacks) Additional medical history: crohn, osteomyelitis, diverticulitis, acid reflux - Surgical History Hx Pacemaker: No Hx Internal Defibrillator: No Additional Surgical History: IVC filter, herniorrhaphy, ankle repair, perirectal abscess I&D 5 - Social History Smoking Status: Never Smoker Substance Use Type: None - Medications Home Medications: Home Medications Medication Instructions Recorded Confirmed Last Taken Type Folic Acid 03/09/20 Unknown History Protonix 03/09/20 Unknown History Zoloft 03/09/20 Unknown History Apixaban [Eliquis] 5 mg PO Q12HR tablet 03/12/20 Unknown Rx carvediloL [Coreg] 3.125 mg PO BID tablet 03/12/20 Unknown Rx levoFLOXacin [Levaquin] 750 mg PO QDAY #7 tablet 03/12/20 Unknown Rx metroNIDAZOLE [Flagyl] 500 mg PO Q8HR #21 tablet 03/12/20 Unknown Rx predniSONE [Deltasone] 40 mg PO QDAY 7 Days 03/12/20 Unknown Rx Prednisone [predniSONE 10 mg 10 mg PO .TAPER #1 tab.ds.pk 05/01/20 Unknown Rx (6-Day Pack, 21 Tabs)] Promethazine [Phenergan] 25 mg PO Q8HR PRN #10 tab 05/01/20 Unknown Rx levoFLOXacin [Levaquin] 750 mg PO QDAY 10 Days #10 tablet 05/01/20 Unknown Rx metroNIDAZOLE [Flagyl] 500 mg PO BID 10 Days #20 tab 05/01/20 Unknown Rx ED Physical Exam - General Limitations: No Limitations General appearance: alert, in no apparent distress - Head Head exam: Present: atraumatic, normocephalic - Eye Eye exam: Present: normal appearance - ENT ENT exam: Present: mucous membranes moist - Respiratory Respiratory exam: Present: normal lung sounds bilaterally. Absent: respiratory distress, wheezes, rales, rhonchi, stridor, chest wall tenderness, accessory mus elyssa use, decreased breath sounds, prolonged expiratory - Cardiovascular Cardiovascular Exam: Present: regular rate, normal rhythm, normal heart sounds. Absent: systolic murmur, diastolic murmur, rubs, gallop - GI/Abdominal GI/Abdominal exam: Present: soft, tenderness (left lower abd), normal bowel sounds. Absent: distended, guarding, rebound, rigid - Rectal Rectal exam: Present: other (a couple of very small 1 cm areas of fluctuance, no active drainage, no necrosis, no skin opening, hand sizer: last name Erick, RN) - Neurological Exam Neurological exam: Present: alert, oriented X3 - Psychiatric Psychiatric exam: Present: normal affect, normal mood - Skin Skin exam: Present: warm, dry, intact ED Course Vital Signs 05/01/20 05/01/20 05/01/20 12:18 17:20 18:00 Temperature 99.1 F 99 F Pulse Rate 109 H 96 H Respiratory 18 20 18 Rate Blood Pressure 121/85 Blood Pressure 144/99 [Right] O2 Sat by Pulse 96 100 Oximetry - Consultations Consultation #1: 05/01/20 22:[address] Ball, general surgeon regarding patient history, presentation, results, physical examination including rectal exam, he advised given that CT is normal, normal vitals, normal white blood cell count, that patient can follow- up outpatient with a colorectal surgeon and to place patient on empiric antibiotics ED Medical Decision Making - Lab Data Result diagrams: 05/01/20 13:59 05/01/20 13:59 Lab Results 05/01/20 05/01/20 05/01/20 Range/Units 13:59 13:59 13:59 WBC 8.7 (4.5-11.0) K/mm3 RBC 4.66 (3.65-5.03) M/mm3 Hgb 12.1 (11.8-15.2) gm/dl Hct 38.3 (35.5-45.6) % MCV 82 L (84-94) fl MCH 26 L (28-32) pg MCHC 32 (32-34) % RDW 17.9 H (13.2-15.2) % Plt Count 522 H (140-440) K/mm3 Lymph % (Auto) 4.2 L (13.4-35.0) % Atkinson % (Auto) 8.4 H (0.0-7.3) % Eos % (Auto) 2.0 (0.0-4.3) % Baso % (Auto) 0.8 (0.0-1.8) % Lymph # 0.4 L (1.2-5.4) K/mm3 Atkinson # 0.7 (0.0-0.8) K/mm3 Eos # 0.2 (0.0-0.4) K/mm3 Baso # 0.1 (0.0-0.1) K/mm3 Seg Neutrophils % 84.6 H (40.0-70.0) % Seg Neutrophils # 7.4 (1.8-7.7) K/mm3 Sodium 137 (137-145) mmol/L Potassium 4.0 (3.6-5.0) mmol/L Chloride 97.4 L (98-107) mmol/L Carbon Dioxide 24 (22-30) mmol/L Anion Gap 20 mmol/L BUN 12 (9-20) mg/dL Creatinine 1.4 H (0.8-1.3) mg/dL Estimated GFR > 60 ml/min BUN/Creatinine Ratio 9 % Glucose 117 H (75-100) mg/dL Calcium 9.7 (8.4-10.2) mg/dL Total Bilirubin 0.40 (0.1-1.2) mg/dL Direct Bilirubin < 0.2 (0-0.2) mg/dL Indirect Bilirubin 0.2 mg/dL AST 16 (5-40) units/L ALT 7 (7-56) units/L Alkaline Phosphatase 142 H (35-129) units/L Total Protein 8.1 (6.3-8.2) g/dL Albumin 4.0 (3.9-5) g/dL Albumin/Globulin Ratio 1.0 % Lipase (13-60) units/L 08/05/20 Range/Units 13:59 WBC (4.5-11.0) K/mm3 RBC (3.65-5.03) M/mm3 Hgb (11.8-15.2) gm/dl Hct (35.5-45.6) % MCV (84-94) fl MCH (28-32) pg MCHC (32-34) % RDW (13.2-15.2) % Plt Count (140-440) K/mm3 Lymph % (Auto) (13.4-35.0) % Atkinson % (Auto) (0.0-7.3) % Eos % (Auto) (0.0-4.3) % Baso % (Auto) (0.0-1.8) % Lymph # (1.2-5.4) K/mm3 Atkinson # (0.0-0.8) K/mm3 Eos # (0.0-0.4) K/mm3 Baso # (0.0-0.1) K/mm3 Seg Neutrophils % (40.0-70.0) % Seg Neutrophils # (1.8-7.7) K/mm3 Sodium (137-145) mmol/L Potassium (3.6-5.0) mmol/L Chloride (98-107) mmol/L Carbon Dioxide (22-30) mmol/L Anion Gap mmol/L BUN (9-20) mg/dL Creatinine (0.8-1.3) mg/dL Estimated GFR ml/min BUN/Creatinine Ratio % Glucose (75-100) mg/dL Calcium (8.4-10.2) mg/dL Total Bilirubin (0.1-1.2) mg/dL Direct Bilirubin (0-0.2) mg/dL Indirect Bilirubin mg/dL AST (5-40) units/L ALT (7-56) units/L Alkaline Phosphatase (35-129) units/L Total Protein (6.3-8.2) g/dL Albumin (3.9-5) g/dL Albumin/Globulin Ratio % Lipase 19 (13-60) units/L - Radiology Data Radiology results: report reviewed CT ABDOMEN AND PELVIS WITHOUT CONTRAST INDICATION / CLINICAL INFORMATION: abdominal pain, crohn's disease pus in stools. TECHNIQUE: Axial CT images were obtained through the abdomen and pelvis without IV contrast. All CT scans at this location are performed using CT dose reduction for [facility] by means of automated exposure control. COMPARISON: 03/08/2020. FINDINGS: LOWER CHEST: No significant abnormality. LIVER: No significant abnormality. GALLBLADDER: No significant abnormality. BILE DUCTS: No significant abnormality. PANCREAS: No significant abnormality. SPLEEN: No significant abnormality. ADRENALS: No significant abnormality. RIGHT KIDNEY / URETER: No significant abnormality. LEFT KIDNEY / URETER: No significant abnormality. STOMACH / SMALL BOWEL: Duodenal diverticulum is similar to prior exam. COLON: There is persistent mural thickening and pericolonic fat stranding noted in a short segment of the sigmoid colon, similar to prior exam. APPENDIX: No significant abnormality. PERITONEUM: No free fluid. No free air. No complex fluid collection. LYMPH NODES: No significant adenopathy. AORTA / ARTERIES: No significant abnormality. IVC / VEINS: IVC filter in stable position. Chronic venous collaterals of the abdomen and right anterior abdominal wall are stable. REPRODUCTIVE ORGANS: No significant abnormality. ADDITIONAL FINDINGS: No significant abnormality. SKELETAL SYSTEM: Multilevel degenerative changes of the spine are similar. IMPRESSION: 1. Unchanged sigmoid colitis without evidence of pneumoperitoneum or abscess. 2. Additional findings are similar to prior exam. Please see above for full details. Signer Name: Lan Rodriguez MD Signed: 05/01/2020 8:39 PM Workstation Name: [id number] Transcribed By: Dictated By: LAN RODRIGUEZ Electronically Authenticated By: LAN RODRIGUEZ Signed Date/Time: 05/01/202038 DD/ 29 TD/TT: - Medical Decision Making Patient is a 49-year-old male presents emergency room with complaints of lower abdominal pain and rectal pain that began a week ago but worsened in the last 2 days. He states that he has associated pus in his stool. He also has nausea and vomiting. He denies any blood in the stool. Patient states that he has had sweats and chills. He denies any hematochezia, melena, hematemesis. He states that he has not seen his GI doctor at [place] since October. Patient was admitted in the hospital in February 2020 and was found to have sigmoid colitis at that time but no other complications. Initial vitals with mild tachycardia which improved upon repeat, patient is afebrile. On exam lower abdominal tenderness to palpation, no guarding, no rebound, no rigidity, normal bowel sounds, on rectal exam: a couple of very small 1 cm areas of fluctuance, no active drainage, no necrosis, no skin opening, hand sizer: last name ALLEN Suarez. Labs are stable, no dehydration based on lab work, white blood cell count is normal. Spoke to Dr. Ball, general surgeon regarding patient history, presentation, results, physical examination including rectal exam, he advised given that CT is normal, normal vitals, normal white blood cell count, that patient can follow-up outpatient with a colorectal surgeon and to place patient on empiric antibiotics. Patient given pain medication, Levaquin, Flagyl, IV flu ids, nausea medication. Patient given prescription for Flagyl, Levaquin, Phenergan, prednisone taper. Patient received 120 tablets of oxycodone a couple of days ago, patient may take this pain medication at home, will not be prescribing further narcotics. advised pt please take medication as prescribed. Please continue taking your pain medication at home. Follow-up with a colorectal surgeon, have listed several below. Follow-up with your GI doctor. Return to emergency room for any new or worsening symptoms. - Differential Diagnosis Crohn's flare, colitis, diverticulitis, fistula, abscess Critical care attestation.: If time is entered above; I have spent that time in minutes in the direct care of this critically ill patient, excluding procedure time. ED Disposition Clinical Impression: Colitis Abdominal pain Qualifiers: Abdominal location: lower abdomen, unspecified Qualified Code(s): R10.30 - Lower abdominal pain, unspecified Nausea & vomiting Qualifiers: Vomiting type: unspecified Vomiting Intractability: non-intractable Qualified Code(s): R11.2 - Nausea with vomiting, unspecified Disposition: TO HOME OR SELFCARE Is pt being admited?: No Does the pt Need Aspirin: No Condition: Stable Instructions: Crohn Disease (ED) Additional Instructions: Please take medication as prescribed. Please continue taking your pain medication at home. Follow-up with a colorectal surgeon, have listed several below. Follow-up with your GI doctor. Return to emergency room for any new or worsening symptoms. [facility] Address: [address] [place] [id number] [facility] Address: [facility] [address], [address], [place] [address] [facility] [employer] in [place], [place] Address: [address], [place] [address] [facility] Address: [address], [place] [address] Prescriptions: metroNIDAZOLE [Flagyl] 500 mg PO BID 10 Days #20 tab levoFLOXacin [Levaquin] 750 mg PO QDAY 10 Days #10 tablet Promethazine [Phenergan] 25 mg PO Q8HR PRN #10 tab PRN Reason: Nausea And Vomiting Prednisone [predniSONE 10 mg (6-Day Pack, 21 Tabs)] 10 mg PO .TAPER #1 tab.ds.pk Referrals: RYAN ARRIAGA MD [Primary Care Provider] - 2-3 Days colorectal, surgeon [Other] - 2-3 Days your, gi doctor [Other] - 2-3 Days [facility] [Provider Group] - 2-3 Days Time of Disposition: 22:42 Print Language: GABONESE
[2020-05-01] MEDS ORDERED: HYDROmorphone 1 MG/1 ML INJ IV ONE ×2 (19:56→22:44)
--- NOTE | 2020-05-01 20:43 | Cat Scan Report ---
CT ABDOMEN AND PELVIS WITHOUT CONTRAST INDICATION / CLINICAL INFORMATION: abdominal pain, crohn's disease pus in stools. TECHNIQUE: Axial CT images were obtained through the abdomen and pelvis without IV contrast. All CT scans at [facility] location are performed using CT dose reduction for [facility] by means of automated exposure control. COMPARISON: 03/08/2020. FINDINGS: LOWER CHEST: No significant abnormality. LIVER: No significant abnormality. GALLBLADDER: No significant abnormality. BILE DUCTS: No significant abnormality. PANCREAS: No significant abnormality. SPLEEN: No significant abnormality. ADRENALS: No significant abnormality. RIGHT KIDNEY / URETER: No significant abnormality. LEFT KIDNEY / URETER: No significant abnormality. STOMACH / SMALL BOWEL: Duodenal diverticulum is similar to prior exam. COLON: There is persistent mural thickening and pericolonic fat stranding noted in a short segment of the sigmoid colon, similar to prior exam. APPENDIX: No significant abnormality. PERITONEUM: No free fluid. No free air. No complex fluid collection. LYMPH NODES: No significant adenopathy. AORTA / ARTERIES: No significant abnormality. IVC / VEINS: IVC filter in stable position. Chronic venous collaterals of the abdomen and right anter ior abdominal wall are stable. REPRODUCTIVE ORGANS: No significant abnormality. ADDITIONAL FINDINGS: No significant abnormality. SKELETAL SYSTEM: Multilevel degenerative changes of the spine are similar. IMPRESSION: 1. Unchanged sigmoid colitis without evidence of pneumoperitoneum or abscess. 2. Additional findings are similar to prior exam. Please see above for full details. Signer Name: Lan Chavez MD Signed: 05/01/2020 8:39 PM Workstation Name: [id number]
== END 2020-05-01 23:10 | disposition home or self-care (01) ==
LOC: ED 12:13
DX: K52.9 Noninfective gastroenteritis and colitis, unspecified (principal); R10.30 Lower abdominal pain, unspecified; R11.2 Nausea with vomiting, unspecified; I50.9 Heart failure, unspecified; I11.0 Hypertensive heart disease with heart failure; F32.9 Major depressive disorder, single episode, unspecified; Z98.890 Other specified postprocedural states; Z79.2 Long term (current) use of antibiotics; Z79.899 Other long term (current) drug therapy; Z91.013 Allergy to seafood; Z88.8 Allergy status to other drugs, medicaments and biological substances
CPT/HCPCS: 36415; 74176; 80048; 80076; 83690; 85025; 96361; 96365; 96367; 96375; 96376; 99284; J1170; J1956; J2270; J2405; J7030